=== PATIENT | female | born 1950 | race Caucasian/White ===

== ENCOUNTER 2017-01-22 13:05 | Emergency (ER) | payer OTHER ==
--- NOTE | 2017-01-22 13:21 | ED GENERAL ADULT ---
History of Present Illness General Chief Complaint: General Adult Stated Complaint: PER DAUGHTER HIGH BP, TIRADO Source: patient, family Exam Limitations: language barrier Vital Signs & Intake/Output Vital Signs & Intake/Output Vital Signs Date Time Temp Pulse Resp B/P Pulse O2 O2 Flow FiO2 Ox Delivery Rate 01/22 1523 54 18 166/84 97 Room Air 01/22 1419 97.2 70 17 188/86 01/22 1350 192/90 01/22 1350 188/86 01/22 1320 97 Room Air 01/22 1310 97.2 70 20 215/115 99 Room Air Allergies Coded Allergies: No Known Allergies (01/22/17) Reconcile Medications Bisoprolol Fumarate 5 MG TABLET 1 TAB PO DAILY HTN (Reported) Triage Note: PT PRESENTS TO ER C/O OF HEADACHE SINCE THIS AM. PT ALSO STATES SHE FEELS DIZZY. PT STATES BP WAS HIGH AT HOME TODAY. BP AT TRIAGE 215/115. PT DENIES CHEST PAIN, SOB, AND VISUAL CHANGES. Triage Nurses Notes Reviewed? yes Onset: Abrupt Duration: day(s): (1) Timing: single episode today Injury Environment: home Severity: mild, moderate No Modifying Factors: none Associated Symptoms: HEADACHE, DIZZINESS, LIGHTHEADED HPI: 66 year old primary Serbian speaking female with history of DM and HTN who presents with her daughter for increased blood pressure. Today she took an extra dose of a probable abelino inhibitor secondary to elevated pressure. Patient is also on a daily beta jamari. She told her daughter she had mild headache and felt unsteady on her feet. No blurred vision, confusion, AMS, chest pain, shortness of breath, back pain/abdominal pain. No weakness in the extremities. Patient is compliant with medications. Denies any other symptoms. Patient has a PCP in [place]. Past History Travel History Traveled to [place] past 21 day No Medical History Any Pertinent Medical History? see below for history Cardiovascular: hypertension Endocrine: diabetes Surgical History Surgical History: non-contributory Psychosocial History What is your primary language Serbian Tobacco Use: Current Daily Use Daily Tobacco Use Amount/Type: => 5 Cigarettes daily ETOH Use: social Illicit Drug Use: denies illicit drug use Family History Hx Contributory? No Review of Systems Review of Systems Constitutional: Denies: chills, fever. EENTM: Reports: no symptoms. Respiratory: Denies: cough, short of breath, sputum production. Cardiovascular: Denies: chest pain, palpitations. GI: Denies: abdominal pain, nausea, vomiting. Genitourinary: Reports: no symptoms. Musculoskeletal: Reports: no symptoms. Skin: Reports: no symptoms. Neurological/Psychological: Reports: see HPI (DIZZINESS), headache. Denies: numbness, tingling, tremors, weakness. Hematologic/Endocrine: Denies: bruising, bleeding, polyuria, polydipsia. Immunologic/Allergic: Denies: splenectomy. All Other Systems: Reviewed and Negative Physical Exam Physical Exam General Appearance: well developed/nourished, alert, awake Head: atraumatic, normal appearance Eyes: Bilateral: PERRL, EOMI. 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 Yes ASA ordered for poss ACS? No-ACS ruled out CVA/TIA Diagnosis: No Severe Sepsis Present: No Septic Shock Present: No Progress Differential Diagnoses I considered the following diagnoses in my evaluation of the patient: [ UNCONTROLLED HTN, HYPERTENSIVE URGENCY, HYPERTENSIVE CRISIS] Plan of Care: Orders Procedure Date/time Status URINALYSIS 01/22 1315 Complete TROPONIN LEVEL 01/22 1315 Complete COMPREHENSIVE METABOLIC PANEL 01/22 1315 Complete CBC WITHOUT DIFFERENTIAL 01/22 1315 Complete EKG 01/22 1312 Active Current Medications Sig/Yehuda Start time Last Medication Dose Stop Time Status Admin Metoprolol Tartrate 50 MG ONCE ONE 01/22 1400 CAN (Lopressor) 01/22 1401 Laboratory Tests 01/22/17 1354: Urine Color YEL, Urine Clarity CLEAR, Urine pH 7.0, Ur Specific Blanchard 1.015, Urine Protein NEG, Urine Ketones NEG, Urine Nitrite NEG, Urine Bilirubin NEG, Urine Urobilinogen 0.2, Ur Leukocyte Esterase NEG, Ur Microscopic EXAM NOT REQUIRED, Urine Hemoglobin NEG, Urine Glucose NEG 01/22/17 1350: Anion Gap 11, Estimated GFR > 60, BUN/Creatinine Ratio 23.3, Glucose 172 H, Calcium 9.7, Total Bilirubin 0.5, AST 31, ALT 49, Alkaline Phosphatase 140 H, Troponin I < 0.01, Total Protein 7.5, Albumin 4.6, Globulin 2.9, Albumin/ Globulin Ratio 1.6, CBC w Diff NO MAN DIFF REQ, RBC 4.83, MCV 92.4, MCH 31.5 H, RDW 12.3, MPV 8.7, Gran % 47.0, Lymphocytes % 43.6, Monocytes % 7.7, Eosinophils % 1.4, Basophils % 0.3, Absolute Granulocytes 3.6, Absolute Lymphocytes 3.3, Absolute Monocytes 0.6, Absolute Eosinophils 0.1, Absolute Basophils 0, PUBS MCHC 34.1 EKG, LABS, METOPROLOL ORDERED. NEURO EXAMINATION INTACT. REPEAT BP 166/84. PATIENT REPORTS NORMAL SYSTOLIC RUNS 140/150. SHE REPORTS RESOLUTION OF SYMPTOMS AT THIS TIME. HOME MEDICATIONS INCREASED AND THE PATIENT WILL RECORD HER BLOOD PRESSURES AND FOLLOW UP WITH HER PCP IN THE OFFICE. (LILIYA NINA,MARIA C) Initial ED EKG: NSR Departure Departure Time of Disposition: 1533 Disposition: HOME OR SELF CARE Condition: Stable Clinical Impression Primary Impression: Hypertension Additional Instructions: TAKE 2 TABLETS OF YOUR BISOPROLOL AND MONITOR YOUR BLOOD PRESSURE TWICE A DAY. KEEP TRACK OF THIS FOR YOUR DOCTOR. RETURN TO THE ER FOR ANY PERSISTENT HIGH BLOOD PRESSURES, HEADACHE, CHEST PAIN, SHORTNESS OF BREATH. Departure Forms: Customer Survey General Discharge Information Critical Care Note Critical Care Note Critical Care Time: non-applicable ED Attending Observation Initial Observation Note: I have seen and personally examined PILAR MONTESINOS on 01/22/17 at 1335. I agree with the current emergency department documentation. The disposition (admission or discharge) is uncertain at this time, she needs a period of observation for the following reason(s): The ED Nurse caring for this patient has been personally informed as to what the patient is being observed for.
[2017-01-22] MEDS ORDERED: BISOPROLOL FUMAR5 M1 PO (13:29)
[2017-01-22 14:03] LABS: ABSOLUTE BASOPHIL COUNT 0 /CUMM (0.0-0.2); ABSOLUTE EOSINOPHIL COUNT 0.1 /CUMM (0.0-0.7); ABSOLUTE GRANULOCYTE CT 3.6 /CUMM (1.4-6.5); ABSOLUTE LYMPH COUNT 3.3 /CUMM (1.2-3.4); ABSOLUTE MONOCYTE COUNT 0.6 /CUMM (0.10-0.60); BASOPHIL % 0.3 % (0.0-2.0); EOSINOPHIL % 1.4 % (0-5); HEMATOCRIT 44.6 % (37-47); MEAN CORPUSCULAR HGB 31.5 PG (27.0-31.0); MEAN CORPUSCULAR HGB CONC 34.1 G/DL (33.0-37.0); MEAN CORPUSCULAR VOLUME 92.4 FL (81.0-99.0); MEAN PLATELET VOLUME 8.7 FL (7.4-10.4); PLATELET COUNT 225 /CUMM (130-400); RBC DISTRIBUTION WIDTH 12.3 % (11.5-14.5); RED BLOOD CELL CT 4.83 /CUMM (4.20-5.40); WHITE BLOOD CELL COUNT 7.6 /CUMM (4.8-10.8)
[2017-01-22 15:23] VITALS: BP 166/84
[2017-01-23] MEDS ORDERED: ALTACE5 M2 PO (10:32)
[2017-01-23] MEDS ORDERED: BISOPROLOL FUMA10 M1 PO (12:25)
[2017-01-23] MEDS ORDERED: LISINOPRIL20 M1 PO (23:08)
[2017-01-23] MEDS ORDERED: [UNRECOGNIZED DRUG - OTHER] PO (23:22)
== END 2017-01-22 15:53 ==
LOC: ERH 13:05
PROVIDERS: Emergency Medicine
DX: I10 Essential (primary) hypertension (principal); Z72.0 Tobacco use; R51 Headache; R42 Dizziness and giddiness
CPT/HCPCS: 81003; 93005; 93010

== ENCOUNTER 2017-01-23 09:28 | Emergency (ER) | payer OTHER ==
[~2017-01-23] VITALS: Ht 175.3 cm; Wt 79.4 kg
[~2017-01-23 09:28] MED LIST: BISOPROLOL FUMAR5 M1 PO
[2017-01-23] MEDS ORDERED: ALTACE5 M2 PO (10:32)
--- NOTE | 2017-01-23 10:44 | ED CARDIAC/CP/PALPITATIONS ---
History of Present Illness General Chief Complaint: General Adult Stated Complaint: HIGH B/P Source: patient, family, old records Exam Limitations: no limitations Vital Signs & Intake/Output Vital Signs & Intake/Output Vital Signs Date Time Temp Pulse Resp B/P Pulse O2 O2 Flow FiO2 Ox Delivery Rate 01/23 1219 97.7 62 20 150/90 98 Room Air 01/23 1136 49 18 180/88 97 01/23 1015 150/98 01/23 0935 97.5 58 16 200/97 100 Room Air Allergies Coded Allergies: No Known Allergies (01/22/17) Reconcile Medications Bisoprolol Fumarate 5 MG TABLET 1 TAB PO DAILY HTN (Reported) Bisoprolol Fumarate 10 MG TABLET 1 TAB PO DAILY htn Ramipril (Altace) 5 MG CAPSULE 1 CAP PO DAILY HEART (Reported) Triage Note: PT HERE FOR HIGH BP WAS SEEN HERE YESTERDAY WAS GIVEN ADDITIONAL MEDS TO TAKE AND WAS TOLD IF BP CONTINURES TO BE HIGH TO RETURN TO ED. Triage Nurses Notes Reviewed? yes Onset: Just prior to arrival Duration: hour(s):, constant, continues in ED Timing: recent history Quality/Severity: mild, aching Location: substernal Radiation: no radiation Activities at Onset: none Prior Chest Pain/Card Workup: no prior cardiac workup Nitro Today/Relief: 0.4 mg x 1, provided by ED Aspirin Today: 81 mg x 4, provided by ED Associated Symptoms: fatigue, headache LMP (ages 10-50): post menopausal : No Patient currently breastfeeds: No HPI: Several days prior to admission patient is complained of chest aching fatigue headache found blood pressure to be elevated. She was seen yesterday with negative lab exams normal EKG with increase in beta jamari. Prior to admission after taking her medications for blood pressure was still elevated with chest aching fatigue headache. She denies fever chills nausea vomiting diarrhea abdominal pain shortness of breath dysuria rash bleeding. Past History Travel History Traveled to [place] past 21 day No Medical History Any Pertinent Medical History? see below for history Cardiovascular: hypertension Endocrine: diabetes Surgical History Surgical History: non-contributory Psychosocial History What is your primary language Serbian Tobacco Use: Current Daily Use Daily Tobacco Use Amount/Type: => 5 Cigarettes daily ETOH Use: occasional use Illicit Drug Use: denies illicit drug use Family History Hx Contributory? No Review of Systems Review of Systems Constitutional: Reports: see HPI, malaise. EENTM: Reports: no symptoms. Respiratory: Reports: no symptoms. Cardiovascular: Reports: see HPI, chest pain. GI: Reports: no symptoms. Genitourinary: Reports: no symptoms. Musculoskeletal: Reports: no symptoms. Skin: Reports: no symptoms. Neurological/Psychological: Reports: see HPI, headache. Hematologic/Endocrine: Reports: no symptoms. Immunologic/Allergic: Reports: no symptoms. All Other Systems: Reviewed and Negative Physical Exam Physical Exam General Appearance: well developed/nourished, alert, awake, anxious, mild distress Head: atraumatic, normal appearance Eyes: Bilateral: normal appearance, PERRL, EOMI. Ears, Nose, Throat: normal pharynx, normal ENT inspection Neck: normal inspection, supple, full range of motion, no midline tenderness Respiratory: normal breath sounds, chest non-tender, no respiratory distress, quiet respiration, lungs clear Cardiovascular: regular rate/rhythm, normal peripheral pulses, norml femoral pulses equa Peripheral Pulses: 4+ carotid (R), 4+ carotid (L) Gastrointestinal: normal bowel sounds, soft, non-tender, no organomegaly Back: normal inspection, normal range of motion Extremities: normal inspection, normal capillary refill, normal range of motion, no edema Neurologic/Psych: no motor/sensory deficits, awake, alert, oriented x 3, normal gait, normal mood/affect, 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 Skin: intact, normal color, warm/dry Lymphatic: no anterior cervical sumeet Core Measures ACS in differential dx? Yes ASA ordered for poss ACS? Yes-ordered Severe Sepsis Present: No Septic Shock Present: No Progress Differential Diagnosis: AMI, hyperkalemia, hyperthyroid, pneumonia Plan of Care: Orders Procedure Date/time Status TROPONIN LEVEL 01/23 1026 Complete COMPREHENSIVE METABOLIC PANEL 01/23 1026 Complete CBC WITHOUT DIFFERENTIAL 01/23 1026 Complete EKG 01/23 1026 Active Laboratory Tests 01/23/17 1037: Anion Gap 8, Estimated GFR > 60, BUN/Creatinine Ratio 21.7, Glucose 177 H, Calcium 9.9, Total Bilirubin 0.7, AST 28, ALT 46, Alkaline Phosphatase 134 H, Troponin I < 0.01, Total Protein 7.3, Albumin 4.4, Globulin 2.9, Albumin/ Globulin Ratio 1.5, CBC w Diff NO MAN DIFF REQ, RBC 4.55, MCV 92.9, MCH 31.2 H, RDW 12.7, MPV 8.4, Gran % 71.9, Lymphocytes % 22.2, Monocytes % 4.8, Eosinophils % 0.6, Basophils % 0.5, Absolute Granulocytes 8.1 H, Absolute Lymphocytes 2.5, Absolute Monocytes 0.5, Absolute Eosinophils 0.1, Absolute Basophils 0.1, PUBS MCHC 33.6 (GEORGE NINA,MALENA) Diagnostic Imaging: Viewed by Me: CT Scan. Discussed w/RAD: CT Scan. Radiology Impression: no acute abnormality Initial ED EKG: normal axis, normal intervals, normal p-waves, normal QRS complex, normal sinus rhythm, no ST T wave changes Prior EKG: unchanged Rhythm Strip: normal sinus rhythm Departure Departure Time of Disposition: 1222 Disposition: HOME OR SELF CARE Condition: Stable Clinical Impression Primary Impression: Hypertension Qualifiers: Hypertension type: essential hypertension Qualified Code: I10 - Essential (primary) hypertension Referrals: PATIENT HAS NO PRIMARY CARE DR (PCP/Family) Additional Instructions: Increase your bisoprolol 10 mg daily and Ramipril 10 mg daily Departure Forms: Customer Survey General Discharge Information Prescriptions: Current Visit Scripts Bisoprolol Fumarate 1 TAB PO DAILY #30 TAB Critical Care Note Critical Care Note Critical Care Time: non-applicable
[2017-01-23 10:52] LABS: ABSOLUTE BASOPHIL COUNT 0.1 /CUMM (0.0-0.2); ABSOLUTE EOSINOPHIL COUNT 0.1 /CUMM (0.0-0.7); ABSOLUTE GRANULOCYTE CT 8.1 /CUMM (1.4-6.5); ABSOLUTE LYMPH COUNT 2.5 /CUMM (1.2-3.4); ABSOLUTE MONOCYTE COUNT 0.5 /CUMM (0.10-0.60); BASOPHIL % 0.5 % (0.0-2.0); EOSINOPHIL % 0.6 % (0-5); GRANULOCYTE % 71.9 % (42.2-75.2); HEMATOCRIT 42.3 % (37-47); MEAN CORPUSCULAR HGB 31.2 PG (27.0-31.0); MEAN CORPUSCULAR HGB CONC 33.6 G/DL (33.0-37.0); MEAN CORPUSCULAR VOLUME 92.9 FL (81.0-99.0); MEAN PLATELET VOLUME 8.4 FL (7.4-10.4); PLATELET COUNT 217 /CUMM (130-400); RBC DISTRIBUTION WIDTH 12.7 % (11.5-14.5); RED BLOOD CELL CT 4.55 /CUMM (4.20-5.40); WHITE BLOOD CELL COUNT 11.3 /CUMM (4.8-10.8)
--- NOTE | 2017-01-23 10:58 | CT SCAN REPORT ---
EXAMINATION: CT HEAD WITHOUT CONTRAST CLINICAL INFORMATION: Headache. Hypertension. Suspected intracranial hemorrhage. COMPARISON: None TECHNIQUE: Contiguous axial imaging was performed from the skull base to vertex without intravenous administration of contrast. DLP: 600.71 mGy-cm FINDINGS: There is no evidence of acute intracranial hemorrhage or territorial infarction. No abnormal mass effect or midline shift is seen. Wallace to white matter differentiation is well preserved. No extra-axial fluid collections are identified. The ventricles are normal in size. There is no abnormal attenuation within the brain parenchyma. The osseous structures and soft tissues are normal. The mastoid air cells and visualized portions of the paranasal sinuses are well aerated. IMPRESSION: No acute intracranial pathology.
[2017-01-23 12:19] VITALS: BP 150/90
[2017-01-23] MEDS ORDERED: BISOPROLOL FUMA10 M1 PO (12:25)
[2017-01-23] MEDS ORDERED: LISINOPRIL20 M1 PO (23:08)
[2017-01-23] MEDS ORDERED: [UNRECOGNIZED DRUG - OTHER] PO (23:22)
== END 2017-01-23 12:33 ==
LOC: ERH 09:28
PROVIDERS: Emergency Medicine
DX: I10 Essential (primary) hypertension (principal); Z72.0 Tobacco use; R51 Headache; R07.9 Chest pain, unspecified
CPT/HCPCS: 93005; 93010; J3490

== ENCOUNTER 2017-01-23 19:57 | Inpatient (IN) | payer OTHER ==
[~2017-01-23] VITALS: Ht 175.3 cm; Wt 68.0 kg
[~2017-01-23 19:57] MED LIST changes: +ALTACE5 M2 PO; +BISOPROLOL FUMA10 M1 PO
--- NOTE | 2017-01-23 20:03 | NUR ---
PER DAUGHTER, SEEN THIS AM FOR HTN GIVEN MEDICATIONS FOLLOWED UP WITH PCP, AND GIVEN MERDS BUT PT CONT TO BE HYPERTENSIVE NOW WITH TIRADO. GIVEN LISINOPRIL 20MG, BISOGARD 5MG,PRIMIL 5 MG
--- NOTE | 2017-01-23 20:09 | NUR ---
EKG DEFERRED AT PT HAD 2 EKGS TODAY ON 1ST VISIT.
--- NOTE | 2017-01-23 20:20 | NUR ---
MANUAL BP 190/96.
--- NOTE | 2017-01-23 20:25 | ED CARDIAC/CP/PALPITATIONS ---
History of Present Illness General Chief Complaint: General Adult Stated Complaint: HIGH BP D/C THIS AM FOR SAME CP/TIRADO Source: patient, family, old records Exam Limitations: language barrier Vital Signs & Intake/Output Vital Signs & Intake/Output Vital Signs Date Time Temp Pulse Resp B/P Pulse O2 O2 Flow FiO2 Ox Delivery Rate 01/23 2213 64 166/88 96 Room Air 01/23 2130 65 180/90 01/23 2126 65 180/90 95 Room Air 01/23 2117 65 18 191/92 95 Room Air 01/24 2116 65 18 191/92 01/23 2038 180/92 01/23 2019 190/96 01/24 2004 97.7 66 22 217/106 96 Allergies Coded Allergies: No Known Allergies (01/22/17) Reconcile Medications Amlodipine Besylate (Norvasc) 10 MG TABLET 1 TAB PO DAILY HTN Aspirin (Aspirin*) 81 MG TAB.CHEW 81 MG PO DAILY CAD Atorvastatin Calcium 40 MG TABLET 40 MG PO 1700 HIGH CHOLESTEROL Clonidine Tts-1 (Catapres-Tts 1) 0.1 MG/24 HOUR PATCH.TDWK 1 PAT TOP Q168 blood pressure [GLICLADA] 30 MG TAB 1 TAB PO BID DIABETES (Reported) Lisinopril 40 MG TABLET 1 TAB PO DAILY HTN Nicotine (Nicotine Patch) 7 MG/24 HOUR PATCH.TD24 7 MG TOP Q24 Smoking Triage Note: PER DAUGHTER, SEEN THIS AM FOR HTN GIVEN MEDICATIONS FOLLOWED UP WITH PCP, AND GIVEN MERDS BUT PT CONT TO BE HYPERTENSIVE NOW WITH TIRADO. GIVEN LISINOPRIL 20MG, BISOGARD 5MG,PRIMIL 5 MG Triage Nurses Notes Reviewed? yes Onset: Abrupt Duration: day(s): (2) Timing: multiple episodes today Quality/Severity: moderate, pressure Location: central Radiation: no radiation Activities at Onset: none Prior Chest Pain/Card Workup: no prior chest pain Aspirin Today: provided at home HPI: 56-year-old primarily Citizen Of [place] speaking female who has a history of high blood pressure presents to the ER for the third time in the last 2 days for chief complaint of elevated blood pressure headache and chest pain. She was seen by myself yesterday. We gave her a dose of oral medications in the ER which brought her pressure down. She felt better and went home. I instructed her to increase the dose of her walker from [employer]. She came earlier today for worsening symptoms and headache. She was seen here had blood work done and a CAT scan done. She was given he med and sent home. This afternoon she followed up with her daughter's physician Fatuma Handley MD who prescribed her 20 mg of lisinopril. This evening her symptoms got worse. Chest pain rated 6 out of 10. She feels heaviness in her chest. Mild diffuse headache, no worse than today. Past History Travel History Traveled to [place] past 21 day No Medical History Any Pertinent Medical History? see below for history Neurological: NONE EENT: NONE Cardiovascular: hypertension Respiratory: NONE Gastrointestinal: NONE Hepatic: NONE Renal: NONE Musculoskeletal: NONE Psychiatric: NONE Endocrine: diabetes Surgical History Surgical History: non-contributory Psychosocial History What is your primary language Citizen Of [place] Tobacco Use: Current Daily Use Daily Tobacco Use Amount/Type: => 5 Cigarettes daily Family History Hx Contributory? No Review of Systems Review of Systems Constitutional: Denies: chills, fever. EENTM: Reports: no symptoms. Respiratory: Denies: cough, short of breath. Cardiovascular: Reports: chest pain. GI: Denies: abdominal pain. Genitourinary: Reports: no symptoms. Musculoskeletal: Reports: no symptoms. Skin: Reports: no symptoms. Neurological/Psychological: Reports: anxiety, headache. Hematologic/Endocrine: Denies: bruising. Immunologic/Allergic: Denies: splenectomy. All Other Systems: Reviewed and Negative Physical Exam Physical Exam General Appearance: well developed/nourished, alert, awake, anxious, mild distress Head: atraumatic, normal appearance Eyes: Bilateral: PERRL, EOMI. Ears, Nose, Throat: normal pharynx, hearing grossly normal Neck: normal inspection, supple, full range of motion Respiratory: normal breath sounds, chest non-tender, no respiratory distress Cardiovascular: regular rate/rhythm Peripheral Pulses: 2+ radial (R), 2+ radial (L) Gastrointestinal: normal bowel sounds, soft, non-tender Extremities: normal inspection, normal range of motion, no edema Neurologic/Psych: no motor/sensory deficits, awake, alert, oriented x 3, normal gait, normal mood/affect Skin: intact, normal color, warm/dry Core Measures ACS in differential dx? 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 Septic Shock Present: No Progress Differential Diagnosis: HYPERTENSIVE URGENCY, HYPERTENSIVE CRISIS, ACS Plan of Care: Orders Procedure Date/time Status Heart Healthy Diet 01/24 B Active Admit to inpatient 01/23 2155 Active Vital Signs 01/23 2155 Active Code Status 01/23 2155 Active XRY-CHEST XRAY, PA AND LATERAL 01/23 2151 Active TROPONIN LEVEL 01/24 2024 Complete COMPREHENSIVE METABOLIC PANEL 01/24 2024 Complete CBC WITHOUT DIFFERENTIAL 01/24 2024 Complete EKG 01/23 1959 Active Laboratory Tests 01/23/172117: Anion Gap 11, Estimated GFR > 60, BUN/Creatinine Ratio 20.0, Glucose 161 H, Calcium 9.9, Total Bilirubin 0.4, AST 29, ALT 46, Alkaline Phosphatase 142 H, Troponin I < 0.01, Total Protein 7.2, Albumin 4.3, Globulin 2.9, Albumin/ Globulin Ratio 1.5, CBC w Diff NO MAN DIFF REQ, RBC 4.44, MCV 91.5, MCH 31.1 H, RDW 12.3, MPV 8.3, Gran % 58.7, Lymphocytes % 31.7, Monocytes % 8.0, Eosinophils % 1.1, Basophils % 0.5, Absolute Granulocytes 5.5, Absolute Lymphocytes 2.9, Absolute Monocytes 0.7 H, Absolute Eosinophils 0.1, Absolute Basophils 0, PUBS MCHC 34.0 IV ENALAPRIL GIVEN WITH IMPROVEMENT IN BLOOD PRESSURE. PATIENT REPORTS CIMINISHED CHEST PAIN AFTER SL NITRO. D/W DR KWON, WILL ADMIT TO TELEMETRY. (LILIYA NINA,MARIA C) Diagnostic Imaging: Viewed by Me: Radiology Read. Discussed w/RAD: Radiology Read. Initial ED EKG: NSR Comments: PATIENT: PILAR MONTESINOS PRESENT AGE: 66 PATIENT ACCOUNT NO: [id number] : 49 LOCATION: [facility] ORDERING PHYSICIAN: MARIA C LOVELL MD SERVICE DATE: 01/23/17 EXAM TYPE: RAD - XRY-CHEST XRAY, PA AND LATERAL EXAMINATION: XR CHEST CLINICAL INFORMATION: Pain. COMPARISON: None TECHNIQUE: 2 views of the chest were obtained. FINDINGS: Unfolding of thoracic vasculature. No significant abnormality is noted involving the heart, lungs, mediastinum, bony thorax or soft tissues. IMPRESSION: No active chest disease. DICTATED BY: VICTORINA MCKINNEY MD DATE/TIME DICTATED:01/23/172222 WOOD MACHINE CARVER:STACI DATE/TIME TRANSCRIBED:01/23/172222 CONFIDENTIAL, DO NOT COPY WITHOUT APPROPRIATE AUTHORIZATION. <Electronically signed in Other Vendor System> SIGNED BY: VICTORINA MCKINNEY MD 01/23/172226 Departure Departure Time of Disposition: 2203 Disposition: STILL A PATIENT Condition: Stable Clinical Impression Primary Impression: Hypertensive urgency Secondary Impressions: Chest pain Referrals: NUVIA NINA,FATUMA Gamino (PCP/Family) Departure Forms: Customer Survey General Discharge Information Prescriptions: Current Visit Scripts Aspirin (Aspirin*) 81 MG PO DAILY #90 Lisinopril 1 TAB PO DAILY #30 TAB Nicotine (Nicotine Patch) 7 MG TOP Q24 #30 PATCH Admission Note Spoke With: DOYLE NINA PhD,JENNIFER Bartholomew Documentation of Exam: Documentation of any treatments & extenuating circumstances including Concerns Regarding Discharge (functional status, medication knowledge or non-compliance, living conditions, etc.) that warrant an admission rather than observation: [ TELE MONITOR, ANTIHYPERTENSIVES, SERIAL EKG/TROPONIN, ASPIRIN/NITRATES, ECHOCARDIOGRAM] Critical Care Note Critical Care Note Critical Care Time: 30-74 min
--- NOTE | 2017-01-23 20:39 | NUR ---
BP 180/92 MANUALLY IN LEFT ARM.
--- NOTE | 2017-01-23 21:16 | NUR ---
PT'S BP CURRENTLY 191/92. PT MEDICATED WITH VASOTEC 1.25MG IV. WILL CONTINUE TO MONITOR.
--- NOTE | 2017-01-23 21:31 | NUR ---
PT'S BP 180/90 AFTER FIRST DOSE OF VASOTEC. DR LOVELL NOTIFIED.
--- NOTE | 2017-01-23 21:31 | NUR ---
SECOND DOSE OF VASOTEC IV GIVEN PER EMAR. DR LOVELL AT BEDSIDE. BP 176/102. PT STATES CHEST PAIN PF 01/11.
[2017-01-23 21:32] LABS: ABSOLUTE BASOPHIL COUNT 0 /CUMM (0.0-0.2); ABSOLUTE EOSINOPHIL COUNT 0.1 /CUMM (0.0-0.7); ABSOLUTE GRANULOCYTE CT 5.5 /CUMM (1.4-6.5); ABSOLUTE LYMPH COUNT 2.9 /CUMM (1.2-3.4); ABSOLUTE MONOCYTE COUNT 0.7 /CUMM (0.10-0.60); BASOPHIL % 0.5 % (0.0-2.0); EOSINOPHIL % 1.1 % (0-5); GRANULOCYTE % 58.7 % (42.2-75.2); HEMATOCRIT 40.6 % (37-47); MEAN CORPUSCULAR HGB 31.1 PG (27.0-31.0); MEAN CORPUSCULAR VOLUME 91.5 FL (81.0-99.0); MEAN PLATELET VOLUME 8.3 FL (7.4-10.4); PLATELET COUNT 216 /CUMM (130-400); RBC DISTRIBUTION WIDTH 12.3 % (11.5-14.5); RED BLOOD CELL CT 4.44 /CUMM (4.20-5.40); WHITE BLOOD CELL COUNT 9.3 /CUMM (4.8-10.8)
--- NOTE | 2017-01-23 21:44 | NUR ---
0.5GM NITRO-BID APPLIED TO LEFT CHEST. WILL CONTINUE TO MONITOR.
--- NOTE | 2017-01-23 21:44 | NUR ---
MANUAL BP 180/98 HEART RATE 63.
--- NOTE | 2017-01-23 21:50 | NUR ---
DR LOVELL NOTIFIED OF CURRENT BP. PT AWARE THAT WE ARE AWAITING LAB RESULTS.
--- NOTE | 2017-01-23 21:55 | NUR ---
PT TAKEN FOR XRAY VIA STRETCHER AT THIS TIME.
--- NOTE | 2017-01-23 22:08 | NUR ---
PT RETURNED FROM XRAY AT THIS TIME.
--- NOTE | 2017-01-23 22:14 | NUR ---
PT'S MANUAL BP 160/88. HEART RATE 64. DR LOVELL NOTIFIED.
--- NOTE | 2017-01-23 22:22 | History & Physical ---
LINDSAY RODRIGUEZ MD 01/23/171: General Information and HPI MD Statement: I have seen and personally examined PILAR ST and documented this H&P. The patient is a 66 year old F who presented with a patient stated chief complaint of high blood pressure. Source of Information: patient, old records Exam Limitations: no limitations History of Present Illness: Ms. St is a pleasant 66 year old Nauruan speaking female with PMH HTN and type 2 DM who presents to the [place] ED with chief complaint of high blood pressure, chest discomfort and dizziness. Patient is mostly Nauruan speaking and therefore most of the history is obtained from the patient's daughter. Patient was seen in the emergency room yesterday due to headache, dizziness and high blood pressure. At that time she was discharged on a higher dose of bisoprolol ( 2 tablets). She had taken her medications as directed but this morning noted her blood pressure remained elevated to 200 systolic and was associated with headache, chest discomfort and dizziness, prompting her to return to the emergency room. She had a head CT done at that time which was negative along with blood work that was non-revealing. Again her bisoprololn was increased and she was instructed to take 10 mg ramipril daily. She subsequently visisted her daughter's PCP, Dr. Pedersen, who prescribed her lisinopril that temporarily decreased her blood pressure but 3 hours later was noted to be high to 190-200 systolic. Due to recurrent chest discomfort, headache and dizziness with this elevated blood pressure, she presented to the ED for a third time. On questioning, patient reports that she continues to have chest pressure, though it was decreased from a 4/10 to a 1/10 with nitroglycerin. The chest pressure is substernal, non-radiating and worsens when her blood pressure is elevated. Patient reports her dizziness is constant, not worsened by movement, and is not associated with nausea or vision changes. Currently, patient denies fever, chills, shortness of breath, palpitations, abdominal pain, nausea, vomiting, vision changes or weakness. Social history is significant for about 40 year history of tobacco abuse, currently using 5 cigarettes a day. She denies illicit drug use and occasionally drinks alcohol. She lives in [place] but travels to [place] frequently. She denies herbal supplement use. Past surgical history is significant for appendectomy. Family history is significant for a father with heart disease and a mother/sister with idiopathic HTN. Allergies/Medications Allergies: Coded Allergies: No Known Allergies (01/22/17) Home Med list Bisoprolol Fumarate 5 MG TABLET 1 TAB PO DAILY HTN (Reported) [GLICLADA] 30 MG TAB 1 TAB PO BID DIABETES (Reported) Lisinopril 20 MG TABLET 1 TAB PO DAILY HTN (Reported) Ramipril (Altace) 5 MG CAPSULE 1 CAP PO DAILY HEART (Reported) Compliance With Home Meds: GOOD Past History Travel History Traveled to [place] past 21 day No Medical History Neurological: NONE EENT: NONE Cardiovascular: hypertension Respiratory: NONE Gastrointestinal: NONE Hepatic: NONE Renal: NONE Musculoskeletal: NONE Psychiatric: NONE Endocrine: diabetes Surgical History Surgical History: non-contributory Past Family/Social History Psychosocial History Where do you live? Home Services at Home: None Primary Language: Nauruan Smoking Status: Current Everyday Smoker ETOH Use: occasional use Illicit Drug Use: denies illicit drug use Living Will? no Functional Ability ADLs Independent: dressing, eating, toileting, bathing. Ambulation: independent IADLs Independent: shopping, housework, finances, food prep, telephone, transportation , medication admin. Review of Systems Review of Systems Constitutional: Denies: chills, diaphoresis, fever, malaise, weakness. EENTM: Denies: blurred vision, visual changes, hearing changes, nasal congestion. Cardiovascular: Reports: chest pain. Denies: orthopena, palpitations, peripheral edema, syncope. Respiratory: Denies: cough, short of breath, sputum production, wheezing. GI: Denies: abdominal pain, nausea, vomiting. Genitourinary: Denies: dysuria, hematuria. Musculoskeletal: Denies: back pain, joint pain. Skin: Denies: lesions, rash. Neurological/Psychological: Reports: headache. Denies: confusion, numbness, paresthesia, tremors. Hematologic/Endocrine: Denies: bruising, bleeding. Immunologic/Allergic: Denies: splenectomy. All Other Systems: Reviewed and Negative Exam & Diagnostic Data Last 24 Hrs of Vital Signs/I&O Vital Signs Date Time Temp Pulse Resp B/P Pulse O2 O2 Flow FiO2 Ox Delivery Rate 01/24 0000 96 01/23 2355 97.9 52 18 142/70 96 Room Air 01/23 2305 97.1 68 18 177/97 94 Room Air 01/230 58 170/94 01/234 64 176/94 01/233 64 166/88 96 Room Air 01/230 65 180/90 01/23 2126 65 180/90 95 Room Air 01/23 2117 65 18 191/92 95 Room Air 01/24 2116 65 18 191/92 01/23 2038 180/92 01/23 2019 190/96 01/23 2004 97.7 66 22 217/106 96 Intake & Output 01/24 0800 01/24 0000 01/23 1600 Intake Total 0 Output Total Balance 0 Intake, Oral 0 Patient 150 lb Weight Physical Exam General Appearance Alert, Oriented X3, Cooperative, No Acute Distress Skin No Rashes, No Breakdown, No Significant Lesion HEENT Atraumatic, PERRLA, EOMI, Mucous Membr. moist/pink Neck Supple, No JVD, +2 Carotid Pulse wo Bruit Lymphatic Cervical nl Cardiovascular Regular Rate, Normal S1, Normal S2, No Murmurs Lungs Clear to Auscultation, Normal Air Movement Abdomen Normal Bowel Sounds, Soft, No Tenderness, No Masses Neurological Normal Speech, Strength at 5/5 X4 Ext, Normal Tone Extremities No Clubbing, No Cyanosis, No Edema, No Tenderness/Swelling Vascular Pulses Symmetrical Last 24 Hrs of Labs/Austen: Laboratory Tests 01/23/172117: Anion Gap 11, Estimated GFR > 60, BUN/Creatinine Ratio 20.0, Glucose 161 H, Calcium 9.9, Total Bilirubin 0.4, AST 29, ALT 46, Alkaline Phosphatase 142 H, Troponin I < 0.01, Total Protein 7.2, Albumin 4.3, Globulin 2.9, Albumin/ Globulin Ratio 1.5, CBC w Diff NO MAN DIFF REQ, RBC 4.44, MCV 91.5, MCH 31.1 H, RDW 12.3, MPV 8.3, Gran % 58.7, Lymphocytes % 31.7, Monocytes % 8.0, Eosinophils % 1.1, Basophils % 0.5, Absolute Granulocytes 5.5, Absolute Lymphocytes 2.9, Absolute Monocytes 0.7 H, Absolute Eosinophils 0.1, Absolute Basophils 0, PUBS MCHC 34.0 Diagnostic Data EKG Results NSR, HR 56 bpm, Small Q waves III, aVF. CXR Results IMPRESSION: No active chest disease. Assessment/Plan Assessment: Ms. St is a pleasant 66 year old Nauruan female with PMH HTN and type2 diabetes mellitus who presents with a two day history of hypertension, chest discomfort, dizziness and headache. She presented to the emergency room three times in total in the last 2 days for these issues, has had non-revealing blood work and CT scan of the head and has been given increased dosages of her bisoprolol/ramipril along with a new mediation, lisinopril. These interventions have failed to control her blood pressure and symptoms. In the ED: Vital signs showed T 97.7, HR 66, RR 22, BP 217/106 and O2 saturation of 95% on room air. Labs showed normal CBC/BEP, Glu 161, alk phos 142 and troponin <0.01. CXR was within normal limits. EKG showed NSR HR 56 bpm, small Q waves in III, aVF. Patient is admitted to the telemetry floor and the following is the management: 1. Hypertensive urgency * Patient received enalaprilat 1.25 mg IV x 2 while in the ED and BP dropped from 217/106 to 170/94 * Will currently hold off on any more antihypertensives tonight as we do not want to drop the BP more than 25% in the first 24 hours * Cardio consult with Dr. Garcia in AM, will follow recs * Lisinopril 40 mg PO BID and bisoprolol 5 mg PO BID starting tomorrow morning for improved BP control * Due to persistent and episodic HTN, will proceed with secondary HTN workup * US- complete abdomen to r/o renal artery stenosis * Renin aldosterone ratio, fractionated metanephrines, catecholamines, urine creatinine, aldosterone and plasma renin all ordered, follow up results 2. Chest pain * Likely secondary to hypertensive urgency * However, we will rule out ACS * Trend trop/ekg at 3 AM and 9 AM * Patient received nitroglycerin top 0.5 gm once, will hold off on nitro patch for now 3. Diabetes mellitus, type two * Hold oral hypoglycemics * Accuchecks TIDAC/HS * NSS TIDAC 4. Tobacco abuse * Patient counseled on tobacco cessation * Nicotine patch daily FULL CODE DVTP: Lovenox SC Heart healthy diet Mild pain pathway As Ranked By This Provider Problem List: 1. Hypertension 2. Hypertensive urgency 3. Chest pain Core Measures/Miscellaneous Acute Coronary Syndrome ACS Diagnosis: No Cerebrovascular Accident CVA/TIA Diagnosis: No Congestive Heart Failure CHF Diagnosis: No Venous Thromboembolism VTE Risk Factors: Acute medical illness, Age > [address] [facility] prophylaxis d/t: No contraindications No VTE Pharm Prophylaxis d/t: No contraindications VTE Diagnosis: No VTE Type: NONE VTE Confirmed by (Test): NONE Severe Sepsis Severe Sepsis Present: No Septic Shock Septic Shock Present: No Miscellaneous Documentation Attending Case Discussed With: Dr. Luis Garcia MD PhD Primary Care Physician: FATUMA PEDERSEN MD Patient sees these Specialists PCP in [place] and [place]. Level of Patient Care: Telemetry MINNIE SHEARER MD 01/24/17 2004: Resident Review Statement Resident Statement: examined this patient, discussed with financial analyst intern, agreed with financial analyst intern Other Findings: 66 Y/O F with a PMH of HTN, DM and gets all her medical care in [place], presents to the ED with complaints of elevated BP, dizziness and chest pressure. At home, she was maintained on Bispoprol 5 mg QD and Ramipril 2.5 QD She was seen in the ED yesterday, for the same complaint. At the time, she was asked to take her home Bisoprolol twice a day and check her blood pressure twice a day. Her BP was found to be elevated to the 220's even after doubling her dose of Bisoprolol. Patient came back to the ED this morning, with complaints of dizziness, chest pressure and elevated blood pressure. CT head done in the ED showed no acute pathology. She was discharged from the ED with her increased dose of Bisoprolol and Ramipril BID. She returned to the ED in the evening with elevated BP. She received 1.25 mg of Vasotec x 2 with decrease in her BP. She continued to have some chest pressure and headache. She denies any dizziness currently and states that her chest pressure is better. She denies any blurring of vision, change in urinary habits etc. Problem List: 1) Hypertensive Urgency (as the patient has elevated BP along with chest pressure) 2/2 inadequate control on current medications vs secondary HTN 2) Diabetes Mellitus Plan: * Admit patient to Telemetry * BP checks Q2 * Trops and EKG x 3 * Start Bisoprolol 5 mg BID and Lisinopril 40 mg BID * Evaluate for secondary HTN with renin:aldosterone, urine metanephrines and catecholamines and urine creatinine. * DVT PPx: Lovenox SubQ * Pain Pathway: Tylenol PRN * Code Status: Full Code
--- NOTE | 2017-01-23 22:27 | RADIOLOGY REPORT ---
EXAMINATION: XR CHEST CLINICAL INFORMATION: Pain. COMPARISON: None TECHNIQUE: 2 views of the chest were obtained. FINDINGS: Unfolding of thoracic vasculature. No significant abnormality is noted involving the heart, lungs, mediastinum, bony thorax or soft tissues. IMPRESSION: No active chest disease.
--- NOTE | 2017-01-23 22:45 | NUR ---
PT'S RM ASSIGNMENT 180 BED 2
--- NOTE | 2017-01-23 22:48 | NUR ---
HOUSESTAFF AT BEDSIDE FOR EVAL.
--- NOTE | 2017-01-23 22:51 | NUR ---
THIS RN CALLED TELEMETRY FOR REPORT. RECEIVING NURSE IS UNAVAILABLE TO TAKE REPORT AT THIS TIME.
--- NOTE | 2017-01-23 23:01 | NUR ---
REPORT GIVEN TO PATRICIA MC ON TELEMETRY.
[2017-01-23] MEDS ORDERED: LISINOPRIL20 M1 PO (23:08)
[2017-01-23] MEDS ORDERED: [UNRECOGNIZED DRUG - OTHER] PO (23:22)
[2017-01-23 23:55] VITALS: BP 142/70
[2017-01-24] VITALS (8 sets, daily range): BP systolic 134–180; BP diastolic 64–92
[2017-01-24 03:38] LABS: ABSOLUTE BASOPHIL COUNT 0 /CUMM (0.0-0.2); ABSOLUTE EOSINOPHIL COUNT 0.1 /CUMM (0.0-0.7); ABSOLUTE GRANULOCYTE CT 5.1 /CUMM (1.4-6.5); ABSOLUTE LYMPH COUNT 3.2 /CUMM (1.2-3.4); ABSOLUTE MONOCYTE COUNT 0.7 /CUMM (0.10-0.60); BASOPHIL % 0.3 % (0.0-2.0); EOSINOPHIL % 0.8 % (0-5); GRANULOCYTE % 56.3 % (42.2-75.2); HEMATOCRIT 37.5 % (37-47); MEAN CORPUSCULAR HGB 31.2 PG (27.0-31.0); MEAN CORPUSCULAR VOLUME 91.9 FL (81.0-99.0); MEAN PLATELET VOLUME 8.3 FL (7.4-10.4); PLATELET COUNT 208 /CUMM (130-400); RBC DISTRIBUTION WIDTH 12.5 % (11.5-14.5); RED BLOOD CELL CT 4.09 /CUMM (4.20-5.40); WHITE BLOOD CELL COUNT 9.1 /CUMM (4.8-10.8)
--- NOTE | 2017-01-24 08:15 | PN- Housestaff ---
Subjective Follow-up For: Hypertensive urgency Type 2 diabetes Complaints: headache 10, frontal and temporal area, denies vision changes, dizziness Tele-Events Since Last Visit: bradycardia, Hr 55-45. Subjective: Patient is seen and examined at the bedside. She was complaining of headache, which was different than yesterday. It was located on both side on temporal and frontal area. She denies any nausea, vomiting, runny nose, tenderness over the frontal area,vision changes, palpitation, chest pain, pain in abdomen. Review of Systems Constitutional: Denies: no symptoms. EENTM: Denies: double vision, visual changes. Cardiovascular: Denies: chest pain. Respiratory: Denies: orthopnea, short of breath. Gastrointestinal: Denies: no symptoms. Genitourinary: Denies: no symptoms. Musculoskeletal: Denies: no symptoms. Skin: Denies: no symptoms. Neurological/Psychological: Reports: headache. Objective Last 24 Hrs of Vital Signs/I&O Vital Signs Date Time Temp Pulse Resp B/P Pulse O2 O2 Flow FiO2 Ox Delivery Rate 01/24 1937 180/01/24 1607 98.7 58 18 150/86 97 Room Air 01/24 1043 57 126/62 01/24 0815 97.8 54 18 134/64 94 Room Air 01/24 0800 Room Air 01/24 0400 97.9 55 18 148/78 97 Room Air 01/24 0200 97.9 65 18 148/70 97 Room Air 01/24 0000 96 01/24 0000 97.9 52 18 142/70 97 Room Air 01/24 0000 97.9 52 18 142/70 96 Room Air 01/23 2355 97.9 52 18 142/70 96 Room Air 01/23 2305 97.1 68 18 177/97 94 Room Air 01/23 2240 58 170/94 01/23 2224 64 176/94 01/23 2213 64 166/88 96 Room Air 01/230 65 180/90 01/23 2126 65 180/90 95 Room Air 01/23 2117 65 18 191/ 95 Room Air 01/24 2116 65 18 191/01/238 180/92 01/23 2019 190/96 Intake & Output 01/24 1600 01/24 0800 01/24 0000 Intake Total 600 620 60 Output Total 240 Balance 600 380 60 Intake, Oral 600 620 60 Output, Urine 240 Patient 68.039 kg Weight Physical Exam General Appearance: Alert, Oriented X3, Cooperative, No Acute Distress Skin: No Rashes, No Breakdown, No Significant Lesion HEENT: Atraumatic, PERRLA, EOMI Neck: Supple, No JVD Cardiovascular: Normal S1, Normal S2 Lungs: Clear to Auscultation, Normal Air Movement Abdomen: Soft, No Tenderness Neurological: Normal Gait, Normal Speech, Strength at 5/5 X4 Ext Extremities: No Clubbing, No Cyanosis, No Edema, Normal Pulses Vascular: Normal Pulses, Pulses Symmetrical Current Medications: Current Medications Sig/Yehuda Start time Last Medication Dose Route Stop Time Status Admin Acetaminophen 650 MG Q6P PRN 01/24 0030 AC 01/24 PO 0750 Bisoprolol Fumarate 5 MG BID 01/24 1000 AC PO Enalaprilat 1.25 MG ONCE ONE 01/23 2130 DC 01/23 IV 01/23 2131 213 Enalaprilat 0 .STK-MED ONE 01/23 2130 OK IV Enalaprilat 0 .STK-MED ONE 01/24 2112 OK IV Enalaprilat 1.25 MG ONCE ONE 01/23 2100 DC 01/23 IV 01/23 2101 2116 Enoxaparin Sodium 40 MG DAILY 01/24 1000 AC 01/24 SC 1042 Hydromorphone HCl 0.2 MG ONCE ONE 01/24 1230 DC 01/24 IV 01/24 1231 1622 Insulin Aspart 0 TIDAC 01/24 0800 AC SC Lisinopril 40 MG BID 01/24 1000 AC 01/24 PO 1043 Nicotine 7 MG Q24 01/24 1000 AC 01/24 TOP 1043 Nitroglycerin 0 .STK-MED ONE 01/24 2136 [facility] Nitroglycerin 0.5 GM ONCE ONE 01/230 OK 01/23 TOP 01/23 2131 2143 Patient Medication 1 ED .STK-MED ONE 01/24 1133 DC Teaching ED 01/24 1134 Assessment/Plan Assessment: Ms. St is a pleasant 66 year old Israeli speaking female with PMH HTN and type 2 DM who presents to the [place] ED with chief complaint of high blood pressure, chest discomfort and dizziness.Patient is mostly Israeli speaking and therefore most of the history is obtained from the patient's daughter. Plans - Hypertensive urgency under evaluation * Serial troponins were negative. * EKG showed 1 millimeter depression in V5 and V6 * Vital signs every shift * Watch for signs of end organ damage * Neurocheck every shift * Strict intake output charting * Target BP - SBP -140-160, DBP - 92-100 * We will continue home medication -tab lisinopril 40mg BID, tab bisoprolol 5 mgs BID * Our pharmacy does not have bisoprolol, but patient brought it from home, and have it. So you can use it if needed. * We will evaluate patient for secondary hypertension -ultrasound of kidney to rule out renal artery stenosis. * Follow-up plasma renin/aldosterone/catechol mines in urine/metanephrine in urine * Spot urine creatinine is 65. Type 2 diabetes mellitus - * Blood sugar monitoring 3 times a day/Bed time * NovoLog according to the sliding scale Chronic smoking * We'll continue nicotine patch 7 milligrams per day Headache -probably tension headache, but it is not responding to Tylenol * Neuro check every shift * Injection Dilaudid 0.2 milligrams state, and IV as needed Diet-diabetic and heart healthy diet DVT prophylaxis-ALP S/heparin CODE STATUS-full code Problem List: 1. Hypertensive urgency 2. Type 2 diabetes mellitus Pain Ratin Pain Location: head Pain Goal: Remain pain free Pain Plan: mild Tomorrow's Labs & Rationales: bep -f/u to r/o renal involvement secondary to HTN
--- NOTE | 2017-01-24 21:51 | ULTRASOUND REPORT ---
Report generated to reflect that Doppler was performed. Please see report of renal ultrasound same day I did not review the images
--- NOTE | 2017-01-24 22:42 | Cons- Cardiology ---
General Information and HPI Consulting Request Date of Consult: 01/24/17 Requested By: DOYLE NINA PhD,JENNIFER Bartholomew History of Present Illness: This patient is a 66 year old female with history of hypertension and diabetes who presented to the ER with complaints of severe, recurrent headaches and was found to be severely hypertensive. She also reports a mild, nonradiating chest heaviness. There is no associated nausea, vomiting or diaphoresis. At her baseline she is only mildly active but can walk at a normal pace without chest discomfort or shortness of breath. Dizziness was also reported and she has brief bursts of palpitations about once a week. The patient has been of Bisoprolol but with inadequate control of her hypertension. Ramipril was subqequently added without much additional beneficial effect. Allergies/Medications Allergies: Coded Allergies: No Known Allergies (01/22/17) Home Med List: Bisoprolol Fumarate 5 MG TABLET 1 TAB PO DAILY HTN (Reported) [GLICLADA] 30 MG TAB 1 TAB PO BID DIABETES (Reported) Lisinopril 20 MG TABLET 1 TAB PO DAILY HTN (Reported) Ramipril (Altace) 5 MG CAPSULE 1 CAP PO DAILY HEART (Reported) Review of Systems Review of Systems: A review of systems is not obtainable. Past History Travel History Traveled to [place] past 21 day No Medical History Blood Transfusion Hx: No Neurological: NONE EENT: NONE Cardiovascular: hypertension Respiratory: NONE Gastrointestinal: NONE Hepatic: NONE Renal: NONE Musculoskeletal: NONE Psychiatric: NONE Endocrine: diabetes Surgical History Surgical History: non-contributory Psychosocial History Where Do You Live? Home Services at Home: None Primary Language: Luxembourger Smoking Status: Current Everyday Smoker ETOH Use: occasional use Illicit Drug Use: denies illicit drug use Living Will? no Functional Ability ADLs Independent: dressing, eating, toileting, bathing. Ambulation: independent IADLs Independent: shopping, housework, finances, food prep, telephone, transportation , medication admin. Exam & Diagnostic Data Vital Signs and I&O Vital Signs Date Time Temp Pulse Resp B/P Pulse O2 O2 Flow FiO2 Ox Delivery Rate 01/24 2105 144/82 01/24 1937 180/92 01/24 1607 98.7 58 18 150/86 97 Room Air 01/24 1043 57 126/62 01/24 0815 97.8 54 18 134/64 94 Room Air 01/24 0800 Room Air 01/24 0400 97.9 55 18 148/78 97 Room Air 01/24 0200 97.9 65 18 148/70 97 Room Air 01/24 0000 96 01/24 0000 97.9 52 18 142/70 97 Room Air 01/24 0000 97.9 52 18 142/70 96 Room Air 01/23 2355 97.9 52 18 142/70 96 Room Air 01/23 2305 97.1 68 18 177/97 94 Room Air 01/23 2240 58 170/94 Intake & Output 01/24 1600 01/24 0800 01/24 0000 01/23 1600 01/23 0800 01/23 0000 Intake Total 600 620 60 Output Total 240 Balance 600 380 60 Intake, Oral 600 620 60 Output, Urine 240 Patient 150 lb Weight Physical Exam: General: WD/ WN female in NAD; alert and oriented x 3 HEENT: NC/ AT, PERRL, EOMI Neck: no JVD, no carotid bruit Heart: RRR w/o murmur Lungs: clear bilaterally Abdomen: soft, NT, +ve bowel sounds Extremities: no edema Diagnostic Data EKG Results sinus rhythm Assessment/Plan Assessment/Plan * This patient has a hypertensive urgency with difficult to control blood pressure unresponsive to multiple medications. We will obtain a renal ultrasound to assess for renal artery stenosis. Check for hyperaldosteronism and for pheochromocytoma. * This patient should be on a low sodium diet. * Obtain an echocardiogram to assess for LVH and to look for regional wall motion abnormalities. * Begin Bisoprolol 10mg BID and Lisinopril 40mg BID. We will increase antihypertensive medications tomorrow if she remains hypertensive. Our goal for today is a 20% reduction to about 160mmHg systolic. * This patient has chest pain that is likely related to subendocardial ischemia from severe hypertension. When more stable we will risk stratify with a pharocologic stress test. The patient is advised to quit smoking. Check a fasting lipid profile. Begin aspirin 81mg daily. Consult Acknowledgment - Thank you for your consult request.
[2017-01-25 02:34] VITALS: BP 124/80
--- NOTE | 2017-01-25 07:18 | ULTRASOUND REPORT ---
EXAMINATION: US RETROPERITONEAL COMPLETE (RENAL) CLINICAL INFORMATION: Hypertensive urgency. COMPARISON: None. TECHNIQUE: Real-time imaging of the kidneys and bladder. FINDINGS: RIGHT KIDNEY: 10.7 x 4.5 x 4.9 cm (SAG x AP x TRV). The kidney is normal in size, contour, and echogenicity. Renal cortical thickness is normal. No calculi or focal parenchymal lesions. No hydronephrosis. On Doppler exam right renal artery proximal velocity 74 cm/s, mid renal artery velocity measures 99 cm/s and distal segment velocity measures 98 cm/s. Renal/aortic ratio is 1.3. Average resistive index is 0.7. Proximal aortic velocity measures 75 cm/s. LEFT KIDNEY: 9.1 x 5.9 x 4.6 cm (SAG x AP x TRV). The kidney is normal in size, contour, and echogenicity. Renal cortical thickness is normal. No calculi or focal parenchymal lesions. No hydronephrosis. On renal Doppler exam left renal artery proximal velocity measures 94 cm/s, mid renal artery velocity measures 103 cm/s and distal segment velocity measures 114 cm/s. Renal/aortic ratio measures 1.5. Average resistive index is 0.8. BLADDER: Well distended and normal. Bilateral ureteral jets are demonstrated. IMPRESSION: Normal renal ultrasound. Normal renal Doppler ultrasound with no evidence to suggest renal artery stenosis.
[2017-01-25 08:36] VITALS: BP 147/81
--- NOTE | 2017-01-25 08:58 | PN- Housestaff ---
See Addendum Subjective Follow-up For: Hypertensive urgency Type 2 diabetes Complaints: no complaints Tele-Events Since Last Visit: JALILR, JOVON Subjective: Patient is seen and examined at the bedside.She was not having any active complains. Denies headache, chest pain,SOB. Review of Systems Constitutional: Denies: no symptoms. Comments: no any active complains Objective Last 24 Hrs of Vital Signs/I&O Vital Signs Date Time Temp Pulse Resp B/P Pulse O2 O2 Flow FiO2 Ox Delivery Rate 01/25 1028 150/72 01/25 0836 96.6 58 16 147/81 94 Room Air 01/25 0234 124/80 01/24 2322 98.4 58 20 144/90 96 Room Air 01/24 2210 52 124/64 01/24 2105 144/82 01/24 1937 180/92 01/24 1607 98.7 58 18 150/86 97 Room Air Intake & Output 01/25 1600 01/25 0800 01/25 0000 Intake Total 100 770.1 Output Total 275 375 Balance -175 395.1 Intake, IV 10.1 Intake, Oral 100 760 Output, Urine 275 375 Physical Exam General Appearance: Alert, Oriented X3, Cooperative, No Acute Distress Cardiovascular: Regular Rate, Normal S1, Normal S2 Lungs: Clear to Auscultation, Normal Air Movement Abdomen: Soft, No Tenderness Neurological: Normal Gait, Normal Speech Extremities: No Clubbing, No Cyanosis, No Edema Current Medications: Current Medications Sig/Yehuda Start time Last Medication Dose Route Stop Time Status Admin Acetaminophen 650 MG Q6P PRN 01/24 0030 AC 01/24 PO 0750 Aspirin 81 MG DAILY 01/25 1000 AC 01/25 PO 1029 Bisoprolol Fumarate 10 MG BID 01/25 1000 UNVr PO Bisoprolol Fumarate 5 MG BID 01/24 1000 DC PO Enoxaparin Sodium 40 MG DAILY 01/24 1000 AC 01/25 SC 1029 Hydromorphone HCl 0.2 MG ONCE ONE 01/24 1230 DC 01/24 IV 01/24 1231 1622 Insulin Aspart 0 TIDAC 01/24 0800 AC 01/25 SC 0914 Lisinopril 40 MG BID 01/24 1000 AC 01/25 PO 1028 Nicotine 7 MG Q24 01/24 1000 AC 01/25 TOP 0914 Patient Medication 1 ED .STK-MED ONE 01/24 1133 DC Teaching ED 01/24 1134 Assessment/Plan Assessment: Ms. St is a pleasant 66 year old Stateless speaking female with PMH HTN and type 2 DM who presents to the [place] ED with chief complaint of high blood pressure, chest discomfort and dizziness.Patient is mostly Stateless speaking and therefore most of the history is obtained from the patient's daughter. Plans - Discharge today, after echo and if patient is stable. Hypertensive urgency under evaluation * Serial troponins were negative. * EKG showed 1 millimeter depression in V5 and V6 * We will follow echocardiogram. * We started patine on Aspirin 81mg PO OD. * Vital signs every shift * Watch for signs of end organ damage * Neurocheck every shift * Strict intake output charting * Target BP - SBP -140-160, DBP - 92-100 * We will continue home medication -tab lisinopril 40mg BID * We will increase tab bisoprolol 10 mgs BID * We will evaluate patient for secondary hypertension -ultrasound of kidney ruled out renal artery stenosis. * Follow-up plasma renin/aldosterone/catechol mines in urine/metanephrine in urine * Spot urine creatinine is 65. Type 2 diabetes mellitus - * Blood sugar monitoring 3 times a day/Bed time * NovoLog according to the sliding scale Chronic smoking * We'll continue nicotine patch 7 milligrams per day Headache -recovered * Neuro check every shift * Injection Dilaudid 0.2 milligrams state, and IV as needed Diet-diabetic and heart healthy diet DVT prophylaxis-ALP S/heparin CODE STATUS-full code Problem List: 1. Type 2 diabetes mellitus 2. Hypertensive urgency Pain Ratin Pain Location: head Pain Goal: Remain pain free Pain Plan: mild, avoid NSAIDs Tomorrow's Labs & Rationales: LIpid profile - it was not done yeterday, as pt already had her breakfast. Advised to be done empty stomach DVT/Prophylaxis: mechanical, pharmacological, early ambulation low risk
[2017-01-25] MEDS ORDERED: ASPIRIN81 M4 PO (11:17)
[2017-01-25] MEDS ORDERED: BISOPROLOL FUMAR5 M1 PO (11:17)
[2017-01-25] MEDS ORDERED: LISINOPRIL40 M1 PO (11:18)
--- NOTE | 2017-01-25 11:23 | Patient Discharge Instructions ---
Discharge Instructions General Discharge Information You were seen/treated for: Uncontrolled hypertension Special Instructions: please follow up with Dr Garcia with in a week of discharge You may need stress test in future. continue all medication as advised you should quit smoking Diet Recommended Diet: Heart Healthy, low salt diet Activity Full Activity/No Limits: No (as tolerated) Activity Self Limited: Yes Acute Coronary Syndrome Inclusion Criteria At DC or during hospital stay patient has or had the following: ACS DIAGNOSIS No Discharge Core Measures Meds if any: Prescribed or Continued at Discharge Meds if any: NOT Prescribed or Continued at Discharge Congestive Heart Failure Inclusion Criteria At DC or during hospital stay patient has or had the following: CHF DIAGNOSIS No Discharge Core Measures Meds if any: Prescribed or Continued at Discharge Meds if any: NOT Prescribed or Continued at Discharge Cerebrovascular accident Inclusion Criteria At DC or during hospital stay patient has or had the following: CVA/TIA Diagnosis No Discharge Core Measures Meds if any: Prescribed or Continued at Discharge Meds if any: NOT Prescribed or Continued at Discharge Venous thromboembolism Inclusion Criteria VTE Diagnosis No VTE Type NONE VTE Confirmed by (Test) NONE Discharge Core Measures - Per Current guidelines, there needs to be overlap - treatment for the first 5 days of Warfarin therapy. - If discharged on Warfarin prior to 5 days of - overlap therapy, the patient will need to be - assessed for post discharge needs including - *Post discharge parental anticoagulation - *Warfarin and/or parental anticoagulation education - *Follow up date to check INR post discharge At least 5 days overlap therapy as Inpatient No Meds if any: Prescribed or Continued at Discharge Note: Overlap Therapy is Warfarin and Anticoagulant Meds if any: NOT Prescribed or Continued at Discharge
[2017-01-25] MEDS ORDERED: NICOTINE PATCH1 EAC1 TOP (11:29)
--- NOTE | 2017-01-25 11:44 | Discharge Summary ---
See Addendum Visit Information Visit Dates Admission Date: 01/23/17 Discharge Date: 01/25/2017 Hospital Course Course Attending Physician: DOYLE NINA PhD,JENNIFER Bartholomew Primary Care Physician: NUVIA NINA,FATUMA Gamino Hospital Course: Ms. St is a pleasant 66 year old [place] Islander speaking female with PMH HTN and type 2 DM who presents to the [place] ED with chief complaint of high blood pressure, chest discomfort and dizziness.Patient is mostly [place] speaking and therefore most of the history is obtained from the patient's daughter. Vital signs at the time of admission-temperature 97.7, heart rate 66, respiratory rate 22, blood pressure 217/106, SPO2 95% on room air. Hypertensive urgency - She was given enalaprilat 1.25 mg IV x 2 while in the ED and BP dropped from 217 /106 to 170/94. She was admitted to telemetry for further monitoring. We started patient on tablet, aspirin 81 mgs , tablet lisinopril 40 mgs BID, tablet bisoprolol 10 mgs BID with target not to drop blood pressure more than 25% .Further blood workup was within normal limits. Initial EKG showed NSR, HR 56, small Q waves in III, aVF and 1 mm depression in V5 and V6.CXR does not show any acute changes.We did send blood workup to rule out secondary hypertension. Ultrasound of abdomen was negative for any evidence of renal artery stenosis. Echocardiogram was done which showed-Normal EF of 55% with impaired LV relaxation. Hospital Course remained uneventful. We discharged patient with advised to follow-up with Dr. Garcia within a week of discharge. We also advised to quit smoking, avoid salt, and take heart healthy diet. Chronic smoking- She is still smoking 1 pack per day, advised to quit as it is a risk factor for stroke with hypertension. Allergies: Coded Allergies: No Known Allergies (01/22/17) Disposition Summary Disposition Principal Diagnosis: Hypertensive urgency Additional Diagnosis: Type 2 diabetes mellitus Chronic smoking Discharge Disposition: home or self care Discharge Instructions General Discharge Information Code Status: Full Code Patient's Diet: Heart healthy diet, low-sodium diet Patient's Activity: As tolerated Follow-Up Instructions/Appts: Please follow-up with Dr. Garcia within a week of discharge You may need stress test in future. Please take the medication as advised Please quit the smoking Please follow-up with your PCP within a week of discharge Medications at Discharge Discharge Medications: Stop taking the following medications: Bisoprolol Fumarate (Bisoprolol Fumarate) 5 MG TABLET ORAL DAILY Ramipril (Altace) 5 MG CAPSULE ORAL DAILY Lisinopril (Lisinopril) 20 MG TABLET ORAL DAILY Continue taking these medications: [GLICLADA] 30 MG TAB 1 Tablet ORAL TWICE DAILY Comments: NOT GIVEN IN HOSPITAL Start taking the following new medications: Aspirin (Aspirin*) 81 MG TAB.CHEW 81 Milligram ORAL DAILY Qty = 90 No Refills Comments: Last Taken: 01/29/17 Time: 9 AM Lisinopril (Lisinopril) 40 MG TABLET 1 Tablet ORAL DAILY Qty = 30 No Refills Comments: Last Taken: 01/29/17 Time: 9 AM Nicotine (Nicotine Patch) 7 MG/24 HOUR PATCH.TD24 7 Milligram On the skin EVERY 24 HOURS Qty = 30 No Refills Comments: Last Taken: 01/29/17 Time: 9 AM Amlodipine Besylate (Amlodipine Besylate) 5 MG TABLET 1 Tablet ORAL DAILY Qty = 30 No Refills Comments: NOT GIVEN IN HOSPITAL Copies To: danika beltran Attending MD Review Statement Documenting Attending: DOYLE NINA PhD,JENNIFER Bartholomew
[2017-01-25] MEDS ORDERED: BISOPROLOL FUMA10 M1 PO (14:44)
[2017-01-25 16:34] VITALS: BP 131/79
--- NOTE | 2017-01-25 18:28 | PN- Cardiology ---
Subjective Subjective: * Blood pressure is now well controlled on current drug regimen. * No complaints * no evidence of renal artery stenosis on her abdominal ultrasound Objective Vital Signs and I&Os Vital Signs Date Time Temp Pulse Resp B/P Pulse O2 O2 Flow FiO2 Ox Delivery Rate 01/25 1634 98.1 64 18 131/79 95 Room Air 01/25 1028 150/72 01/25 0836 96.6 58 16 147/81 94 Room Air 01/25 0234 124/80 01/24 2322 98.4 58 20 144/90 96 Room Air 01/24 2210 52 124/64 01/24 2105 144/82 01/24 1937 180/92 Intake & Output 01/25 1600 01/25 0800 01/25 0000 01/24 1600 01/24 0800 01/24 0000 Intake Total 400 100 770.1 600 620 60 Output Total 650 275 375 240 Balance -250 -175 395.1 600 380 60 Intake, IV 10.1 Intake, Oral 400 100 760 600 620 60 Output, Urine 650 275 375 240 Patient 150 lb Weight Physical Exam: General: WD/ WN female in NAD; alert and oriented x 3 Neck: no JVD, no carotid bruit Heart: RRR w/o murmur Lungs: clear bilaterally Extremities: no edema Assessment/Plan Assessment/Plan * Causes of secondary hypertension are still pending. We can follow up on these labs as an outpatient. No evidence of renal artery stenosis by ultrasound. * Continue Bisoprolol 10mg daily and Lisinopril 40mg BID. Low sodium diet. * Continue aspirin. * Patient may be discharged to home with follow up in the office in one week tonight or tomorrow AM. Continue telemetry? No
--- NOTE | 2017-01-25 18:39 | Admission Certification ---
Admission Certification Certification Statement - As attending physician, I certify that at the time of - admission, based on clinical presentation, severity of - symptoms, need for further diagnostic testing and - therapeutic interventions, and risk of adverse outcomes - without in-hospital treatment, in my clinical assessment, - this patient requires an acute hospital stay for a minimum - of two nights or longer. I have also considered psychsocial - factors such as support system, advanced age, financial - issues, cognitive issues, and failed out-patient treatments, - past re-admission history, safety of patient, and lack of - compliance as applicable. Specific rationale supporting this admission is: This patient has severe hypertension that has been refractory to treatment. It is strongly suspected that greater than 48 hours will be needed to bring her pressure down to a safe level and ensure that it remains in this safe range consistently.
[2017-01-25 22:00] VITALS: BP 140/70
--- NOTE | 2017-01-25 22:44 | ECHOCARDIOGRAM REPORT ---
PILAR MONTESINOS Age: 66 : 1950 Gender: F Exam Date: 01/25/2017 11:30 Exam Location: [facility] Ht (in): 69 Wt (lb): 150 BSA: 1.82 BP: 147 / 81 Ordering Physician: CARMEN CHURCH MD Referring Physician: CARMEN CHURCH MD Technologist: Jadiel Dickson [facility] Room Number: 182-1 Indications: HYPERTENSION Rhythm: Sinus Technical Quality: good FINDINGS Left Ventricle Normal left ventricular size, wall thickness and systolic function with no obvious regional wall motion abnormalities. Diastolic filling pattern is consistent with impaired LV relaxation. The ejection fraction is visually estimated at 55%. Right Ventricle The right ventricle is normal in size and function. Right Atrium The right atrium is normal in size. Left Atrium The left atrium is normal in size. The interatrial septum is intact. Mitral Valve The mitral valve is normal in structure and function. There is no mitral regurgitation. Aortic Valve Structurally normal aortic valve without significant sclerosis or stenosis. There is no aortic regurgitation. Tricuspid Valve The tricuspid valve is normal in structure and function. There is trace tricuspid regurgitation. Pulmonary artery systolic pressure is normal. Pulmonic Valve Structurally normal pulmonic valve. There is no pulmonic regurgitation. Pericardium Normal pericardium without effusion. No pleural effusion. Great Vessels Normal aortic root dimension. The aortic arch and great vessels are well seen and are normal. CONCLUSIONS 1. Normal EF of 55% with impaired LV relaxation. 2. Trace tricuspid regurgitation. Luis Garcia M.D. (Electronically Signed) Final Date: 25 January 2017 22:43 MEASUREMENTS (Male / Female) Normal Values 2D ECHO LV Diastolic Diameter PLAX 3.4 cm 4.2 - 5.9 / 3.9 - 5.3 cm LV Systolic Diameter PLAX 2.4 cm 2.1 - 4.0 cm LV Fractional Shortening PLAX 29.0 % 25 - 46 % LV Ejection Fraction 2D Teich 56.9 % IVS Diastolic Thickness 1.1 cm LVPW Diastolic Thickness 1.1 cm LV Relative Wall Thickness 0.7 RV Internal Dim ED PLAX 3.0 cm 1.9 - 3.8 cm LVOT Diameter 1.9 cm Aortic Root Diameter 2.8 cm LA Systolic Diameter LX 2.8 cm 3.0 - 4.0 / 2.7 - 3.8 cm Ascending Aorta Diameter 2.9 cm DOPPLER AV Peak Velocity 114.0 cm/s AV Peak Gradient 5.2 mmHg AV Mean Velocity 78.7 cm/s AV Mean Gradient 3.0 mmHg AV Velocity Time Integral 22.6 cm LVOT Peak Velocity 107.0 cm/s LVOT Peak Gradient 4.6 mmHg LVOT Mean Velocity 58.0 cm/s LVOT Mean Gradient 2.0 mmHg LVOT Velocity Time Integral 21.4 cm LVOT Stroke Volume 60.7 cm AV Area Cont Eq vti 2.7 cm AV Area Cont Eq pk 2.7 cm MV Peak Velocity 78.6 cm/s MV Peak Gradient 2.5 mmHg MV Mean Velocity 44.7 cm/s MV Mean Gradient 1.0 mmHg Mitral E Point Velocity 51.8 cm/s Mitral A Point Velocity 69.6 cm/s Mitral E to A Ratio 0.7 MV PHT Velocity 70.6 cm/s MV Deceleration [place] 358.0 cm/s MV Pressure Half Time 59.2 ms MV Area PHT 3.7 cm MV Deceleration Time 461.0 ms TR Peak Velocity 213.0 cm/s TR Peak Gradient 18.1 mmHg Right Atrial Pressure 5.0 mmHg Pulmonary Artery Systolic Pressu 23.1 mmHg Right Ventricular Systolic Press 23.1 mmHg PV Peak Velocity 108.0 cm/s PV Peak Gradient 4.7 mmHg PV Mean Velocity 68.0 cm/s PV Mean Gradient 2.0 mmHg PV Velocity Time Integral 25.0 cm
[2017-01-26 08:08] VITALS: BP 124/80
--- NOTE | 2017-01-26 08:17 | PN- Housestaff ---
Subjective Follow-up For: Hypertensive urgency Type 2 diabetes Complaints: no complaints Tele-Events Since Last Visit: NSR, sinus bradycardia, JOVON Subjective: Patient is seen and examined at the bedside. She was not having any active complain. She told that she has a small bump on the left popliteal fossa. I advised her to follow-up with the PCP for further evaluation and the management. Review of Systems Constitutional: Denies: no symptoms. Comments: Patient does not have any active complaints Objective Last 24 Hrs of Vital Signs/I&O Vital Signs Date Time Temp Pulse Resp B/P Pulse O2 O2 Flow FiO2 Ox Delivery Rate 01/26 1008 57 136/88 01/26 0808 99.0 48 16 124/80 95 Room Air 01/25 2200 50 140/70 01/25 2200 97.5 52 20 140/70 96 Room Air Intake & Output 01/26 1600 01/26 0800 01/26 0000 Intake Total 300 100 200 Output Total Balance 300 100 200 Intake, Oral 300 100 200 Physical Exam General Appearance: Alert, Oriented X3, Cooperative Cardiovascular: Normal S1, Normal S2 Lungs: Clear to Auscultation, Normal Air Movement Extremities: No Clubbing, No Cyanosis, No Edema Current Medications: Current Medications Sig/Yehuda Start time Last Medication Dose Route Stop Time Status Admin Acetaminophen 650 MG Q6P PRN 01/24 0030 DCD 01/24 PO 0750 Aspirin 81 MG DAILY 01/25 1000 DCD 01/26 PO 1008 Bisoprolol Fumarate 10 MG DAILY 01/25 1600 DCD 01/26 PO 1008 Enoxaparin Sodium 40 MG DAILY 01/24 1000 DCD 01/26 SC 1009 Insulin Aspart 0 TIDAC 01/24 0800 DCD 01/26 SC 1211 Lisinopril 40 MG BID 01/24 1000 DC 01/26 PO 1008 Nicotine 7 MG Q24 01/24 1000 DCD 01/26 TOP 1007 Last 24 Hrs of Lab/[place] Results Last 24 Hrs of Labs/Mics: Laboratory Tests 01/26/17 0655: Triglycerides 161 H, Cholesterol 241 H, LDL Cholesterol, Calc 162 H, HDL Cholesterol 47, Cholesterol/HDL Ratio 5 H Assessment/Plan Assessment: Ms. St is a pleasant 66 year old [place] speaking female with PMH HTN and type 2 DM who presents to the [place] ED with chief complaint of high blood pressure, chest discomfort and dizziness.Patient is mostly [place] speaking and therefore most of the history is obtained from the patient's daughter. Plans - Discharge today Hypertensive urgency under evaluation * Serial troponins were negative. * EKG showed 1 millimeter depression in V5 and V6 * Eco-showed impaired LV relaxation, LVEF 55% * We we will continue Aspirin 81mg PO OD. * We will continue home medication -tab lisinopril 40mg once a day and start her on tablet amlodipine 5 milligrams once a day * We will stop tablet bisoprolol as advised by Dr. Chavarria * -ultrasound of kidney ruled out renal artery stenosis. * Follow-up plasma renin/aldosterone/catechol mines in urine/metanephrine in urine * Spot urine creatinine is 65. Type 2 diabetes mellitus - * We will restart her on home medication Chronic smoking * We'll continue nicotine patch 7 milligrams per day Headache -recovered Diet-diabetic and heart healthy diet DVT prophylaxis-ALP S/heparin CODE STATUS-full code Problem List: 1. Hypertensive urgency 2. Type 2 diabetes mellitus 3. Hypertension Pain Ratin Pain Location: Not applicable Pain Goal: Remain pain free Pain Plan: Mild Tomorrow's Labs & Rationales: Not required patient is going home
[2017-01-26 10:08] VITALS: BP 136/88
[2017-01-26] MEDS ORDERED: NORVASC5 M1 PO (10:57)
--- NOTE | 2017-01-26 11:02 | PN- Cardiology ---
Subjective Subjective: The patient is feeling better. Blood pressure is under control. No chest pain. No palpitations. Headache has resolved. No lightheadedness or dizziness. No nausea or vomiting. She is noted to be bradycardic during the night with heart rate in the 40s for multiple hours. Objective Vital Signs and I&Os Vital Signs Date Time Temp Pulse Resp B/P Pulse O2 O2 Flow FiO2 Ox Delivery Rate 01/26 1008 57 136/88 01/26 0808 99.0 48 16 124/80 95 Room Air 01/25 2200 50 140/70 01/25 2200 97.5 52 20 140/70 96 Room Air 01/25 1634 98.1 64 18 131/79 95 Room Air Intake & Output 01/26 1600 01/26 0801/26 0000 01/25 1600 01/25 0800 01/25 0000 Intake Total 100 200 400 100 770.1 Output Total 650 275 375 Balance 100 200 -250 -175 395.1 Intake, IV 10.1 Intake, Oral 100 200 400 100 760 Output, Urine 650 275 375 Physical Exam: Gen: NAD HEENT: normal Lungs: clear to auscultation, normal resp. effort Heart: RRR, S1, S2, no murmurs Abdomen: Soft, nontender, no masses Extremities: No clubbing, cyanosis, or edema. Neuro: Alert and oriented x 3, cranial nerves intact Current Medications: Current Medications Sig/Yehuda Start time Last Medication Dose Route Stop Time Status Admin Acetaminophen 650 MG Q6P PRN 01/24 0030 AC 01/24 PO 0750 Aspirin 81 MG DAILY 01/25 1000 AC 01/26 PO 1008 Bisoprolol Fumarate 10 MG DAILY 01/25 1600 AC 01/26 PO 1008 Enoxaparin Sodium 40 MG DAILY 01/24 1000 AC 01/26 SC 1009 Insulin Aspart 0 TIDAC 01/24 0800 AC 01/25 SC 1246 Lisinopril 40 MG BID 01/24 1000 DC 01/26 PO 1008 Nicotine 7 MG Q24 01/24 1000 AC 01/26 TOP 1007 Results Last 48 Hrs of Labs/Mics: Laboratory Tests 01/26/17 0655: Triglycerides 161 H, Cholesterol 241 H, LDL Cholesterol, Calc 162 H, HDL Cholesterol 47, Cholesterol/HDL Ratio 5 H 01/25/17 0600: Triglycerides Cancelled, Cholesterol Cancelled, LDL Cholesterol, Calc Cancelled, HDL Cholesterol Cancelled, Cholesterol/HDL Ratio Cancelled Recent Imaging Studies: Echocardiogram 01/25/17: 1. Normal EF of 55% with impaired LV relaxation. 2. Trace tricuspid regurgitation. Assessment/Plan Assessment/Plan Assessment: 1. Hypertensive urgency, improved 2. Sinus bradycardia in the 40s secondary to bisoprolol Plan: * Given the significant sinus bradycardia, I recommend discontinuing bisoprolol. * Start amlodipine 5 mg daily for blood pressure control in place of bisoprolol * Change lisinopril to 40 mg daily since this is generally considered at the maximum dose * Discharge to home. * Follow up with Dr. Handley and Dr. Radha perla 1 week Continue telemetry? No
[2017-01-26] MEDS ORDERED: AMLODIPINE BESYL5 M1 PO (11:10)
== END 2017-01-26 12:45 | DRG 199 ==
LOC: ENRESERVTM → ENRESERVDT → ERH 19:57 → 1NO 21:55 → ENPENDDIS 21:55 → ERHI 21:55 → 1NO 23:42
PROVIDERS: Emergency Medicine; Internal Medicine; ADMIT Internal Medicine Interventional Cardiology
DX: I16.0 Hypertensive urgency (principal); E11.9 Type 2 diabetes mellitus without complications; Z79.84 Long term (current) use of oral hypoglycemic drugs; Z82.49 Family history of ischemic heart disease and other diseases of the circulatory system; F17.210 Nicotine dependence, cigarettes, uncomplicated; E78.5 Hyperlipidemia, unspecified
CPT/HCPCS: 1NP; 1NSP; 36415; 76775; 82436; 82570; 93005; 93010; 93306; 96374; 99291; J1650; J3490

== ENCOUNTER 2017-01-28 02:23 | Observation (INO) | payer OTHER ==
[~2017-01-28] VITALS: Ht 175.3 cm; Wt 73.5 kg
[~2017-01-28 02:23] MED LIST changes: +AMLODIPINE BESYL5 M1 PO; +ASPIRIN81 M4 PO; +LISINOPRIL20 M1 PO; +LISINOPRIL40 M1 PO; +NICOTINE PATCH1 EAC1 TOP; +NORVASC5 M1 PO; +[UNRECOGNIZED DRUG - OTHER] PO
--- NOTE | 2017-01-28 02:33 | NUR ---
PT FROM HOME C/O HTN. PTS DAUGHTER STATES THAT THIS PAST WED-SAT PT WAS ADMITTED TO [facility] ON TELE UNIT AND D/C'D WITH STABLE HIGH BP. PT FOLLOWED UP WITH DR AND PTS REGULARLY CHECKS BP AND STATED THAT IT WAS CONTINUALLY HIGHER THAN NORMAL FROM 1800, PTS DAUGHTER ALSO STATES THAT PT TOOK ADDTIONAL BP MEDICATION TO TRY AND LOWER IT. PT AWOKE AROUND 0200 WITH A TIRADO AT THE BASE OF THE SKULL. PTS BP IN TRIAGE 173/112. THIS RN WILL CHECK MANUALLY.
--- NOTE | 2017-01-28 02:36 | ED GENERAL ADULT ---
History of Present Illness General Chief Complaint: General Adult Stated Complaint: PER DAUGHTER PT HYPERTENSIVE Source: patient Exam Limitations: no limitations Vital Signs & Intake/Output Vital Signs & Intake/Output Vital Signs Date Time Temp Pulse Resp B/P Pulse O2 O2 Flow FiO2 Ox Delivery Rate 01/28 0350 142/78 01/28 0350 98 Room Air 01/28 0327 156/79 01/28 0324 138/78 01/28 0321 147/80 01/28 0318 66 156/78 01/28 0244 174/90 01/28 0230 98.5 69 18 173/112 95 Room Air Allergies Coded Allergies: No Known Allergies (01/22/17) Reconcile Medications Amlodipine Besylate 5 MG TABLET 1 TAB PO DAILY HTN Aspirin (Aspirin*) 81 MG TAB.CHEW 81 MG PO DAILY CAD [GLICLADA] 30 MG TAB 1 TAB PO BID DIABETES (Reported) Lisinopril 40 MG TABLET 1 TAB PO DAILY HTN Nicotine (Nicotine Patch) 7 MG/24 HOUR PATCH.TD24 7 MG TOP Q24 Smoking Triage Note: PT FROM HOME C/O HTN. PTS DAUGHTER STATES THAT THIS PAST SAT-SAT PT WAS ADMITTED TO [facility] ON TELE UNIT AND D/C'D WITH STABLE HIGH BP. PT FOLLOWED UP WITH DR AND PTS REGULARLY CHECKS BP AND STATED THAT IT WAS CONTINUALLY HIGHER THAN NORMAL FROM 1800, PTS DAUGHTER ALSO STATES THAT PT TOOK ADDTIONAL BP MEDICATION TO TRY AND LOWER IT. PT AWOKE AROUND 0200 WITH A TIRADO AT THE BASE OF THE SKULL. PTS BP IN TRIAGE 173/112. THIS RN WILL CHECK MANUALLY. Triage Nurses Notes Reviewed? yes Onset: Gradual Duration: hour(s): Timing: single episode today Injury Environment: home Severity: moderate Modifying Factors: Improves With: rest. Associated Symptoms: chest pain HPI: 66 yo woman discharged 2 days ago with hypertensive urgency, presents with 4/10 substernal chest pressure and home blood pressure reading of 200/100 which began at approximately 6pm yesterday. Her daughter shares that she took an extra pill of her lisinopril 40mg this evening. She notes no radiation, shortness of breath, chills, wheezing. She is otherwise well. Past History Travel History Traveled to [place] past 21 day No Medical History Any Pertinent Medical History? see below for history Neurological: NONE EENT: NONE Cardiovascular: hypertension Respiratory: NONE Gastrointestinal: NONE Hepatic: NONE Renal: NONE Musculoskeletal: NONE Psychiatric: NONE Endocrine: diabetes History of MRSA: No History of VRE: No History of CDIFF: No Surgical History Surgical History: non-contributory Psychosocial History Services at Home None What is your primary language Fijian Tobacco Use: Quit >30 days ago Family History Hx Contributory? No Review of Systems Review of Systems Constitutional: Reports: no symptoms. EENTM: Reports: no symptoms. Respiratory: Reports: no symptoms. Cardiovascular: Reports: no symptoms. GI: Reports: no symptoms. Genitourinary: Reports: no symptoms. Musculoskeletal: Reports: no symptoms. Skin: Reports: no symptoms. Neurological/Psychological: Reports: no symptoms. Hematologic/Endocrine: Reports: no symptoms. Immunologic/Allergic: Reports: no symptoms. All Other Systems: Reviewed and Negative Physical Exam Physical Exam General Appearance: well developed/nourished, mild distress Head: atraumatic, normal appearance Eyes: Bilateral: normal appearance. Ears, Nose, Throat: normal pharynx, normal ENT inspection Neck: normal inspection, supple, full range of motion Respiratory: normal breath sounds, chest non-tender, no respiratory distress, quiet respiration, lungs clear Cardiovascular: regular rate/rhythm Gastrointestinal: normal bowel sounds, soft, non-tender Back: normal inspection, normal range of motion Extremities: normal inspection, normal capillary refill, normal range of motion, no edema Neurologic/Psych: no motor/sensory deficits, awake, alert, oriented x 3 Skin: intact, normal color, warm/dry Core Measures ACS in differential dx? Yes ASA ordered for poss ACS? Yes-ordered CVA/TIA Diagnosis: No Severe Sepsis Present: No Septic Shock Present: No Progress Differential Diagnoses I considered the following diagnoses in my evaluation of the patient: hypertenstive urgency, unstable angina vs other. Plan of Care: Orders Procedure Date/time Status Nothing by Mouth 01/28 B Active Saline Lock 01/[address] in observation 01/28 419 Active Misc Message 01/28 419 Active ED Holding Orders 01/28 419 Active Vital Signs 01/28 419 Active Code Status 01/28 419 Active TROPONIN LEVEL 01/28 225 Complete COMPREHENSIVE METABOLIC PANEL 01/28 225 Complete CBC WITHOUT DIFFERENTIAL 01/28 225 Complete EKG 01/28 225 Active Laboratory Tests 01/28/17 0300: Anion Gap 10, Estimated GFR > 60, BUN/Creatinine Ratio 28.0 H, Glucose 159 H, Calcium 9.8, Total Bilirubin 0.4, AST 29, ALT 50, Alkaline Phosphatase 142 H, Troponin I < 0.01, Total Protein 7.0, Albumin 4.3, Globulin 2.7, Albumin/ Globulin Ratio 1.6, CBC w Diff NO MAN DIFF REQ, RBC 4.36, MCV 92.9, MCH 31.4 H, RDW 12.4, MPV 8.8, Gran % 42.3, Lymphocytes % 46.2, Monocytes % 8.7, Eosinophils % 2.2, Basophils % 0.6, Absolute Granulocytes 3.1, Absolute Lymphocytes 3.3, Absolute Monocytes 0.6, Absolute Eosinophils 0.2, Absolute Basophils 0, PUBS MCHC 33.8 Diagnostic Imaging: Viewed by Me: Radiology Read. Discussed w/RAD: Radiology Read. CXR Impression: no acute abnormality, no infiltrates, normal size heart, normal mediastinum Initial ED EKG: normal axis, normal intervals, normal p-waves, normal QRS complex, normal sinus rhythm Comments: PATIENT: PILAR MONTESINOS PRESENT AGE: 66 PATIENT ACCOUNT NO: [id number] : 49 LOCATION: [facility] ORDERING PHYSICIAN: MARIA C LOVELL MD SERVICE DATE: 01/23/17 EXAM TYPE: RAD - XRY-CHEST XRAY, PA AND LATERAL EXAMINATION: XR CHEST CLINICAL INFORMATION: Pain. COMPARISON: None TECHNIQUE: 2 views of the chest were obtained. FINDINGS: Unfolding of thoracic vasculature. No significant abnormality is noted involving the heart, lungs, mediastinum, bony thorax or soft tissues. IMPRESSION: No active chest disease. DICTATED BY: VICTORINA MCKINNEY MD DATE/TIME DICTATED:01/23/172222 SPICE ROOM WORKER:STACI DATE/TIME TRANSCRIBED:01/23/172222 CONFIDENTIAL, DO NOT COPY WITHOUT APPROPRIATE AUTHORIZATION. <Electronically signed in Other Vendor System> SIGNED BY: VICTORINA MCKINNEY MD 01/23/172226 Departure Departure Disposition: STILL A PATIENT Condition: Stable Clinical Impression Primary Impression: Hypertensive urgency Secondary Impressions: Chest pain Referrals: FATUMA PEDERSEN MD (PCP/Family) Departure Forms: Customer Survey General Discharge Information Observation Note Spoke With: SHAY MUJICA MD Physician Advisor Notified: FRANCESCA DO,TRINITY L. Place Patient In: Non-ED OBS Care Area Rationale for Observation: My rational for observation is as follows . Pt discharged 2 days ago, had 4/10 chest pain and bp 200/100 at home.... required iv hydralazine iv and nitro sl for control of anginal type symptoms and improvement in her blood pressure.... Pt merits medical optimization (clonidine? hydralazine?), rule out, cards input, tele monitoring. Critical Care Note Critical Care Note Critical Care Time: 30-74 min
--- NOTE | 2017-01-28 02:44 | NUR ---
SEJAL GARCIAS CHECKED MANUAL BP 174/90, DR BRAVO INFORMED
--- NOTE | 2017-01-28 03:00 | NUR ---
IV EST #20 RIGHT FOREARM. BLOODWORK OBTAINED AND SENT TO LAB ([facility], [facility], [facility], [facility]).
--- NOTE | 2017-01-28 03:01 | NUR ---
EKG DONE AND SHOWN TO DR. BRAVO, PT PLACED ON MONITOR.
--- NOTE | 2017-01-28 03:22 | NUR ---
PT MEDICATED WITH 10MG APRESOLINE IV, 325MG ASA PO, AND 1 SL NITRO STAT PER EMAR, SEE VITAL SIGNS FOR BP.
[2017-01-28 03:24] LABS: ABSOLUTE BASOPHIL COUNT 0 /CUMM (0.0-0.2); ABSOLUTE EOSINOPHIL COUNT 0.2 /CUMM (0.0-0.7); ABSOLUTE GRANULOCYTE CT 3.1 /CUMM (1.4-6.5); ABSOLUTE LYMPH COUNT 3.3 /CUMM (1.2-3.4); ABSOLUTE MONOCYTE COUNT 0.6 /CUMM (0.10-0.60); BASOPHIL % 0.6 % (0.0-2.0); EOSINOPHIL % 2.2 % (0-5); GRANULOCYTE % 42.3 % (42.2-75.2); HEMATOCRIT 40.5 % (37-47); MEAN CORPUSCULAR HGB 31.4 PG (27.0-31.0); MEAN CORPUSCULAR HGB CONC 33.8 G/DL (33.0-37.0); MEAN CORPUSCULAR VOLUME 92.9 FL (81.0-99.0); MEAN PLATELET VOLUME 8.8 FL (7.4-10.4); PLATELET COUNT 218 /CUMM (130-400); RBC DISTRIBUTION WIDTH 12.4 % (11.5-14.5); RED BLOOD CELL CT 4.36 /CUMM (4.20-5.40); WHITE BLOOD CELL COUNT 7.2 /CUMM (4.8-10.8)
--- NOTE | 2017-01-28 05:32 | NUR ---
PT ADMIT TO RM 174-2 TELE OBS
--- NOTE | 2017-01-28 05:42 | History & Physical ---
LINDSAY RODRIGUEZ MD 01/28/17 0542: General Information and HPI MD Statement: I have seen and personally examined PILAR ST and documented this H&P. The patient is a 66 year old F who presented with a patient stated chief complaint of high blood pressure. Source of Information: patient, family, old records Exam Limitations: no limitations History of Present Illness: Ms. St is a pleasant 66 year old Salvadorean speaking female with PMH HTN and type 2 DM who presents to the [facility] ED with chief complaint of high blood pressure, chest discomfort and dizziness. Patient was recently discharged from [facility] on 01/25/17 after workup and treatment for hypertensive urgency. At that time, she was discharged on 10 mg PO bisoprolol BID, aspirin 81 mg PO daily and lisinopril 40 mg PO daily. Her blood pressure was stabilized after discharge, however yesterday evening, Ms. St noted that her blood pressure was again elevated to 200 mmHg systolic. She took an additional 20 mg PO lisinopril due to this high reading, but her blood pressure remained elevated. She attempted to take a nap and rest, however awoke with sharp, occipital headache, 4/10 substernal and non-radiating chest discomfort, dizziness and dry mouth. These were all of the symptoms patient experienced prior to previous admission and she attributes them to her high blood pressure. Patient also mentions that she is very anxious and feels as if all her muscles are tense. She again reiterates that she has increased stressors in her daily life. Currently, patient denies headache, vision changes, palpitations, shortness of breath, diaphoresis, nausea, vomiting or weakness. She does endorse 2/10 substernal, non -radiating chest discomfort, slight dizziness and anxiety. Social history is significant for about 40 year history of tobacco abuse, currently using 5 cigarettes a day. She denies illicit drug use and occasionally drinks alcohol. She lives in [place] but travels to [place] frequently. She denies herbal supplement use. Past surgical history is significant for appendectomy. Family history is significant for a father with heart disease and a mother/sister with idiopathic HTN. Allergies/Medications Allergies: Coded Allergies: No Known Allergies (01/22/17) Home Med list Amlodipine Besylate 5 MG TABLET 1 TAB PO DAILY HTN Aspirin (Aspirin*) 81 MG TAB.CHEW 81 MG PO DAILY CAD [GLICLADA] 30 MG TAB 1 TAB PO BID DIABETES (Reported) Lisinopril 40 MG TABLET 1 TAB PO DAILY HTN Nicotine (Nicotine Patch) 7 MG/24 HOUR PATCH.TD24 7 MG TOP Q24 Smoking Compliance With Home Meds: GOOD Past History Travel History Traveled to [place] past 21 day No Medical History Neurological: NONE EENT: NONE Cardiovascular: hypertension Respiratory: NONE Gastrointestinal: NONE Hepatic: NONE Renal: NONE Musculoskeletal: NONE Psychiatric: NONE Endocrine: diabetes History of MRSA: No History of VRE: No History of CDIFF: No Surgical History Surgical History: non-contributory Past Family/Social History Psychosocial History Where do you live? Home Services at Home: None Primary Language: Salvadorean Smoking Status: Current Everyday Smoker ETOH Use: occasional use Illicit Drug Use: denies illicit drug use Living Will? no Functional Ability ADLs Independent: dressing, eating, toileting, bathing. Ambulation: independent IADLs Independent: shopping, housework, finances, food prep, telephone, transportation , medication admin. Review of Systems Review of Systems Constitutional: Denies: chills, fever, weakness. EENTM: Denies: blurred vision, visual changes, hearing changes. Cardiovascular: Reports: chest pain. Denies: edema, palpitations, peripheral edema, syncope. Respiratory: Denies: cough, short of breath, wheezing. GI: Denies: abdominal pain, nausea, vomiting. Genitourinary: Denies: dysuria, hematuria. Musculoskeletal: Denies: back pain, joint pain. Skin: Denies: change in skin color, change in hair/nails, lesions. Neurological/Psychological: Reports: anxiety, headache. Denies: confusion, tremors. Hematologic/Endocrine: Denies: bruising, bleeding. Immunologic/Allergic: Denies: splenectomy. All Other Systems: Reviewed and Negative Exam & Diagnostic Data Last 24 Hrs of Vital Signs/I&O Vital Signs Date Time Temp Pulse Resp B/P Pulse O2 O2 Flow FiO2 Ox Delivery Rate 01/28 0350 142/78 01/28 0350 98 Room Air 01/28 0327 156/79 01/28 0324 138/78 01/28 0321 147/80 01/28 0318 66 156/78 01/28 0244 174/90 01/28 0230 98.5 69 18 173/112 95 Room Air Intake & Output 01/28 0800 01/28 0000 01/27 1600 Intake Total Output Total Balance Patient 162 lb Weight Physical Exam General Appearance Alert, Oriented X3, Cooperative, No Acute Distress Skin No Rashes, No Breakdown HEENT Atraumatic, PERRLA, EOMI, Mucous Membr. moist/pink Neck Supple, No JVD, +2 Carotid Pulse wo Bruit Lymphatic Cervical nl Cardiovascular Regular Rate, Normal S1, Normal S2, No Murmurs Lungs Clear to Auscultation, Normal Air Movement Abdomen Normal Bowel Sounds, Soft, No Tenderness, No Hepatospenomegaly Neurological Normal Speech, Normal Tone Extremities No Clubbing, No Cyanosis, No Edema Vascular Pulses Symmetrical Last 24 Hrs of Labs/Austen: Laboratory Tests 01/28/17 0300: Anion Gap 10, Estimated GFR > 60, BUN/Creatinine Ratio 28.0 H, Glucose 159 H, Calcium 9.8, Total Bilirubin 0.4, AST 29, ALT 50, Alkaline Phosphatase 142 H, Troponin I < 0.01, Total Protein 7.0, Albumin 4.3, Globulin 2.7, Albumin/ Globulin Ratio 1.6, CBC w Diff NO MAN DIFF REQ, RBC 4.36, MCV 92.9, MCH 31.4 H, RDW 12.4, MPV 8.8, Gran % 42.3, Lymphocytes % 46.2, Monocytes % 8.7, Eosinophils % 2.2, Basophils % 0.6, Absolute Granulocytes 3.1, Absolute Lymphocytes 3.3, Absolute Monocytes 0.6, Absolute Eosinophils 0.2, Absolute Basophils 0, PUBS MCHC 33.8 Diagnostic Data EKG Results NSR HR 79 bpm, QTC 441. Assessment/Plan Assessment: Ms. St is a pleasant 66 year old Salvadorean speaking female with PMH HTN and type 2 DM who presents to the [facility] ED with chief complaint of high blood pressure, chest discomfort and dizziness. Patient was recently admitted to [facility] on 01/23/17 for hypertensive urgency and again presents with similar complaints, including high blood pressure, headache, slight dizziness and substernal chest tightness. In the ED: Vital signs showed T 98.5, HR 69, RR 18, BP 173/112 and O2 saturation of 95% on room air. Labs showed unremarkable CBC and BEP. Alkaline phos was 142 and troponin <0.01. EKG showed NSR with HR 79 bpm and no significant change from prior. Patient is an observation on the telemetry floor and the following is the management: 1. Hypertensive urgency * BP 173/112 on presentation to the ED, currently at 142/78 after 10 mg IV hydralazine and 0.4 mg SL nitro * Continuous tele monitoring, vital signs Q shift * Continue 10 mg PO norvasc * 40 mg PO daily lisinopril * ASA 81 mg PO daily * Cardiology consult with Dr. Garcia in AM * Trend trops/EKG x 3 to rule out ACS, next sets are at 9 AM and 3 PM * Secondary HTN workup still pending, follow up results * Renal US on 01/24/17 ruled out renal artery stenosis * Of note, no need to repeat echo as it was done on 01/25 and showed normal EF to 55% and impaired LV relaxation 2. Type 2 DM * NSS * Accuchecks TIDAC/HS 3. Tobacco abuse * Tobacco cessation counseling * Nicotine patch 7 mg Top Q24 4. Anxiety * Patient appears anxious and self-reports recent increase in levels of anxiety * Ativan 0.5 mg PO x 1 now * Follow up repeat BP and consider psych follow up FULL CODE DVTP: SC Lovenox Heart Healthy Diet Mild pain pathway As Ranked By This Provider Problem List: 1. Hypertensive urgency 2. Chest pain 3. Type 2 diabetes mellitus Core Measures/Miscellaneous Acute Coronary Syndrome ACS Diagnosis: No Cerebrovascular Accident CVA/TIA Diagnosis: No Congestive Heart Failure CHF Diagnosis: No Venous Thromboembolism VTE Risk Factors: Acute medical illness, Age > 40, Smoking [facility] prophylaxis d/t: No contraindications No VTE Pharm Prophylaxis d/t: No contraindications VTE Diagnosis: No VTE Type: NONE VTE Confirmed by (Test): NONE Severe Sepsis Severe Sepsis Present: No Septic Shock Septic Shock Present: No Miscellaneous Documentation Attending Case Discussed With: SHAY MUJICA MD Primary Care Physician: NUVIA NINA,FATUMA Gamino Patient sees these Specialists PCP in [place] and [place]. Level of Patient Care: Telemetry MINNIE SHEARER MD 01/28/17 0613: Resident Review Statement Resident Statement: examined this patient, discussed with internet marketing strategist, agreed with internet marketing strategist Other Findings: 66 Y/O F with a PMH of HTN, DM and gets all her medical care in [place], presents to the ED with complaints of elevated BP, dizziness and chest pressure. At home, she was maintained on Bispoprol 5 mg QD and Ramipril 2.5 QD She was seen in the ED on 01/23, for the same complaint. At the time, she was asked to take her home Bisoprolol twice a day and check her blood pressure twice a day. Her BP was found to be elevated to the 220's even after doubling her dose of Bisoprolol. Patient came back to the ED the next day, with complaints of dizziness, chest pressure and elevated blood pressure. CT head done in the ED showed no acute pathology. She was discharged from the ED with her increased dose of Bisoprolol and Ramipril BID. She returned to the ED in the evening with elevated BP. She received 1.25 mg of Vasotec x 2 with decrease in her BP. She continued to have some chest pressure and headache. She was then admitted to the telemetry service for HTN urgency. At the time of discharge she was sent home on 01/26 with lisinopril 40mg daily and Amlodipine 5mg for BP management. Patient reports that the evening after she was discharged (ie last evening, she started to have chest tightness that was associated with some occipital headache). She checked her BP and found it to be >200 systolic, so was brought to the ED by her daughter. Of note, at the time of the last admission, bloodwork sent for possible causes of secondary hypertension is still pending. Problem List: 1) Hypertensive Urgency (as the patient has elevated BP along with chest pressure) 2/2 inadequate control on current medications vs secondary HTN 2) Diabetes Mellitus Plan: * Admit patient to Telemetry * Trops and EKG x 3 * Continue Lisinopril 40 mg QD and incease home amlodipine to 10 mg daily. * Await results for secondary HTN causes (renin:aldosterone, urine metanephrines and catecholamines and urine creatinine) that were sent at the time of the previous admission. * DVT PPx: Lovenox SubQ * Pain Pathway: Tylenol PRN * Code Status: Full Code * Patient tends to be anxious and this could be contributing to her elevation in BP. Will administert one dose of PO Ativan and recheck BP after. SHAY MUJICA 01/28/17 0720: Attending Review Statement Attending Statement Attending MD Statement: examined this patient, discuss w/resident/PA/[employer]ARD, agreed w/resident/PA/[employer]ARD, discussed with family, reviewed EMR data (avail), reviewed images, amended to note Attending Assessment/Plan: CC: Chest pain and elevated blood pressure PMH: DM, HTN Patient was recently admitted for elevated blood pressure, and her meds were adjusted and was discharged on . Patient was monitoring blood pressure at home twice a day, today the blood pressure was elevated to 200/100, the same time patient was noticing pressure-like substernal chest pain nonradiating, not associated with palpitation or diaphoresis. So daughter brought her to ER. Vitals: Blood pressure at presentation 173 over 112 trended down to 174/90 then gradually down and up to 135/87 after 10 mg of IV hydralazine, temperature, pulse, respiration, O2 saturation unremarkable. On examination a O 3, anxious, no acute distress, no JVD, neck supple, no lymphadenopathy, mucosa moist, no focal neurological deficit. CVS: S1-S2, RRR. RS: Clear to auscultate bilaterally. Abdomen: Soft, NT, bowel sounds present. No dependent edema, peripheral pulses perfusion normal. Labs: CBC, BMP, troponin, LFT unremarkable. EKG No acute A and P #1 chest pain: Transient, at rest, substernal, nonradiating, no EKG changes, troponin negative, relieved after nitroglycerin. Observe on telemetry, trend troponin, serial EKG, cardiology consult. Continue aspirin Rule out ACS. #2 hypertensive urgency: Blood pressure elevated to 200/ 100 at home, persistently elevated in ER responded to hydralazine, increase amlodipine to 10 mg continue current dose of lisinopril at 40 mg daily. I talked to daughter at length regarding gradually titrating medications for blood pressure control. #3 history of DM: Continue sliding scale insulin #4 history of smoking: Currently on Nicotine patch, counseled regarding cessation
--- NOTE | 2017-01-28 06:17 | NUR ---
PT APPEARS TO BE RESTING COMFORTBALY. RESP UNLABORED. NSR ON THE MOINTOR.
[2017-01-28 06:42] VITALS: BP 140/80
[2017-01-28 09:00] VITALS: BP 138/72
--- NOTE | 2017-01-28 11:06 | PN- Housestaff ---
Subjective Follow-up For: hypertensive urgency type 2 DM Complaints: no complaints Tele-Events Since Last Visit: Sinus bradycardia, heart rate 59, No any Overnight events Subjective: Patient is seen and examined at the bedside. She was not having any active complaints. She denies any shortness of breath, chest pain, headache, nausea, vomiting, abdominal pain, or weakness in her any part of the body. Discussed about the event, at home to her daughter over the phone. According to the daughter . She is talking over the phone with her friend, after that she started having pain in occipital region of her head and after that when they checked her blood pressure was very high over 190 systolic. She took an extra dose of losartan and checked the blood pressure after an hour and which was remained high , so she came to hospital. Review of Systems Constitutional: Denies: no symptoms. Comments: She denies any active complaints Objective Last 24 Hrs of Vital Signs/I&O Vital Signs Date Time Temp Pulse Resp B/P Pulse O2 O2 Flow FiO2 Ox Delivery Rate 01/28 0914 64 138/72 01/28 0914 64 138/72 01/28 0900 138/72 01/28 0642 97.7 64 20 140/80 96 Room Air 01/28 0612 98.4 65 18 135/87 96 01/28 0350 142/78 01/28 0350 98 Room Air 01/28 0327 156/79 01/28 0324 138/78 01/28 0321 147/80 01/28 0318 66 156/78 01/28 0244 174/90 01/28 0230 98.5 69 18 173/112 95 Room Air Intake & Output 01/28 1600 01/28 0800 01/28 0000 Intake Total Output Total Balance Patient 73.482 kg Weight Physical Exam General Appearance: Alert, Oriented X3, Cooperative, No Acute Distress Cardiovascular: Regular Rate, Normal S1, Normal S2 Lungs: Clear to Auscultation, Normal Air Movement Abdomen: Soft, No Tenderness Neurological: Normal Gait, Normal Speech, Strength at 5/5 X4 Ext Extremities: No Clubbing, No Cyanosis, No Edema Current Medications: Current Medications Sig/Yehuda Start time Last Medication Dose Route Stop Time Status Admin Acetaminophen 650 MG Q6P PRN 01/28 0515 AC PO Amlodipine Besylate 10 MG DAILY 01/28 1000 AC 01/28 PO 0914 Aspirin 81 MG DAILY 01/28 1000 AC 01/28 PO 0913 Aspirin 0 .STK-MED ONE 01/28 031 DC PO Aspirin 325 MG ONCE ONE 01/28 0315 DC 01/28 PO 01/28 0316 0327 Enoxaparin Sodium 40 MG DAILY 01/28 1000 AC 01/28 SC 0912 Hydralazine HCl 0 .STK-MED ONE 01/28 0317 DC .ROUTE Hydralazine HCl 10 MG ONCE ONE 01/28 0315 DC 01/28 IV 01/286 0327 Insulin Aspart 0 TIDAC 01/28 0800 AC 01/28 SC 0911 Lisinopril 40 MG DAILY 01/28 1000 AC 01/28 PO 0914 Lorazepam 0 .STK-MED ONE 01/28 0610 DC PO Lorazepam 0.5 MG ONCE ONE 01/28 0545 DC 01/28 PO 01/28 0546 0612 Nicotine 7 MG Q24 01/28 1000 CAN TOP Nicotine 7 MG DAILY 01/28 1000 AC 01/28 TOP 0913 Nitroglycerin 0.4 MG ONCE ONE 01/285 DC 01/28 SL 01/29 316 0327 Last 24 Hrs of Lab/Austen Results Last 24 Hrs of Labs/Mics: Laboratory Tests 01/28/17 0932: Troponin I < 0.01 01/28/17 0300: Anion Gap 10, Estimated GFR > 60, BUN/Creatinine Ratio 28.0 H, Glucose 159 H, Calcium 9.8, Total Bilirubin 0.4, AST 29, ALT 50, Alkaline Phosphatase 142 H, Troponin I < 0.01, Total Protein 7.0, Albumin 4.3, Globulin 2.7, Albumin/ Globulin Ratio 1.6, CBC w Diff NO MAN DIFF REQ, RBC 4.36, MCV 92.9, MCH 31.4 H, RDW 12.4, MPV 8.8, Gran % 42.3, Lymphocytes % 46.2, Monocytes % 8.7, Eosinophils % 2.2, Basophils % 0.6, Absolute Granulocytes 3.1, Absolute Lymphocytes 3.3, Absolute Monocytes 0.6, Absolute Eosinophils 0.2, Absolute Basophils 0, PUBS MCHC 33.8 Assessment/Plan Assessment: Patient is a 66-year-old Hungarian-speaking lady with significant past medical history of hypertension and type 2 diabetes mellitus , recently admitted for hypertensive urgency and discharged on 01/25/2017, again presented to [facility] with chief complaints of high blood pressure, chest discomfort, headache. Plan - Possible discharge tomorrow Hypertensive urgency - * Serial troponins were negative and EKG shows no changes * We will continue tab lisinopril 40 milligrams daily and amlodipine 10 milligrams daily * Vitals every shift * Watch for signs of hypertension including headache and chest pain * We will follow the blood workup for secondary hypertension including metanephrine and normetanephrine, ranin and aldosterone ratio * We will follow cardiology recommendation Type 2 diabetes mellitus * Regular monitoring of blood sugar level 3 times a day/at bedtime * We will supplement insulin according to sliding scale * Tomorrow, we will start her home medication Hyperlipidemia * Lipid profile - LDL -162, cholesterol-241 * Will start her on tablet atorvastatin 40 milligrams OD HS Chronic smoking- * Nicotine patch 7 mgs, OD Diet-heart healthy and low-salt diet DVT prophylaxis -ALP S/heparin CODE STATUS-full code Problem List: 1. Type 2 diabetes mellitus 2. Hypertensive urgency Pain Ratin Pain Location: Occipital region of the head Pain Goal: Remain pain free Pain Plan: [id number] Tomorrow's Labs & Rationales: Not requiring
[2017-01-28] MEDS ORDERED: NORVASC10 M1 PO (12:06)
[2017-01-28] MEDS ORDERED: ATORVASTATIN CA40 M1 PO (14:33)
--- NOTE | 2017-01-28 14:58 | Discharge Summary ---
Visit Information Visit Dates Admission Date: 01/28/17 Discharge Date: 01/29/17 Hospital Course Course Attending Physician: Dr Streeter Primary Care Physician: NUVIA NINA,FATUMA Gamino Hospital Course: Patient is a 66 year old Burundian speaking female with significant past medical history of hypertension , hypertensive urgency and type 2 DM who presents to the [facility] ED with chief complaint of high blood pressure, associated with occipital headache, chest discomfort and dizziness.Patient is mostly Burundian speaking and therefore most of the history is obtained from the patient's daughter. Vital signs at the time of temperature 98.5, pulse 69, respiratory rate 18, blood pressure 173/112, SPO2 95% on room air Hypertensive urgency - She was given hydralazine 10mgs IV, sublingual nitroglycerin in the ED and BP come down from 173/112-142/78 . She was admitted to telemetry for further monitoring. We continued patient on tablet aspirin 81 mgs, tablet, lisinopril 40 mgs, tablet amlodipine 10 mgs, tablet atorvastatin 40mgs. Initial EKG showed NSR and blood workup was within normal limits. We took cardiology opinion and they advised to start patient on clonidine patch. During the hospital course, patient 's blood pressure remained stable. We discharged her with advised to follow-up with Dr. Garcia for further management of hypertension as an outpatient. We also advised her to be compliant with the medication and stop smoking. We be told her that she should discuss with Dr. Garcia about the blood workup, we sent to rule out secondary hypertension. Chronic smoking She quit smoking. We encouraged her to continue it and offered help. Allergies: Coded Allergies: No Known Allergies (01/22/17) Disposition Summary Disposition Principal Diagnosis: Hypertensive urgency under evaluation Additional Diagnosis: Type 2 diabetes mellitus Chronic smoking Discharge Disposition: home or self care Discharge Instructions General Discharge Information Code Status: Full Code Patient's Diet: Heart healthy diet, low-salt diet, low-fat diet Patient's Activity: As tolerated Follow-Up Instructions/Appts: please follow up with your PCP with in a week of discharge. Please follow up with your radar air traffic controller with in a week of discharge and discuss about your blood work up. Please take medication as advised. Please quit smoking. Medications at Discharge Discharge Medications: Stop taking the following medications: Amlodipine Besylate (Amlodipine Besylate) 5 MG TABLET ORAL DAILY Qty = 30 Continue taking these medications: [GLICLADA] 30 MG TAB 1 Tablet ORAL TWICE DAILY Comments: NOT GIVEN IN HOSPITAL Aspirin (Aspirin*) 81 MG TAB.CHEW 81 Milligram ORAL DAILY Qty = 90 Comments: Last Taken: 01/29/17 Time: 9 AM Lisinopril (Lisinopril) 40 MG TABLET 1 Tablet ORAL DAILY Qty = 30 Comments: Last Taken: 01/29/17 Time: 9 AM Nicotine (Nicotine Patch) 7 MG/24 HOUR PATCH.TD24 7 Milligram On the skin EVERY 24 HOURS Qty = 30 Comments: Last Taken: 01/29/17 Time: 9 AM Start taking the following new medications: Amlodipine Besylate (Norvasc) 10 MG TABLET 1 Tablet ORAL DAILY Qty = 30 No Refills Comments: Last Taken: 01/29 Time: 9AM Atorvastatin Calcium (Atorvastatin Calcium) 40 MG TABLET 40 Milligram ORAL 5 PM Qty = 60 No Refills Comments: Last Taken: 01/28 Time: 5PM Clonidine Tts-1 (Catapres-Tts 1) 0.1 MG/24 HOUR PATCH.TDWK 1 Patch On the skin ONCE A WEEK Qty = 30 No Refills Comments: NOT GIVEN IN HOSPITAL Copies To: NUVIA NINA,FATUMA Gamino; DOYLE NINA PhD,JENNIFER Bartholomew Attending MD Review Statement Documenting Attending: SELWYN STREETER MD
[2017-01-28 15:00] VITALS: BP 118/70
[2017-01-28 16:51] VITALS: BP 120/57
--- NOTE | 2017-01-28 18:43 | Cons- Cardiology ---
General Information and HPI Consulting Request Date of Consult: 01/28/17 Requested By: SHAY MUJICA MD History of Present Illness: This patient is a 66 year old female with history of hypertension and diabetes who was recently discharged from [facility] after being treated for uncontrolled hypertension. She was disinitially started on Bisoprolol 10mg daily and Lisinopril 40mg BID but was taken off the Bisoprolol just prior to discharge due to concerns regarding bradycardia. She now returns due to further treatment of this condition which still does not appear to be adequately controlled. Shital reports a discomfort in the back of her neck along with chest discomfort radiating to her arm. Her blood pressure was greater than 200 systolic. The patient states that she is taking her medications faithfully. To review this patient's prior history, she initially presented to [facility] a week ago with complaints of severe, recurrent headaches and she was found to be severely hypertensive at that time. She also reported a mild, nonradiating chest heaviness without associated nausea, vomiting or diaphoresis. At her baseline she is only mildly active but can walk at a normal pace without chest discomfort or shortness of breath. Dizziness was also reported and she has brief bursts of palpitations about once a week. Workup included labs for possible Pheochromocytoma that are not back yet and a renal ultrasound that did not show any evidence of renal artery stenosis. Allergies/Medications Allergies: Coded Allergies: No Known Allergies (01/22/17) Home Med List: Amlodipine Besylate 5 MG TABLET 1 TAB PO DAILY HTN Amlodipine Besylate (Norvasc) 10 MG TABLET 1 TAB PO DAILY HTN Aspirin (Aspirin*) 81 MG TAB.CHEW 81 MG PO DAILY CAD Atorvastatin Calcium 40 MG TABLET 40 MG PO 1700 HIGH CHOLESTEROL [GLICLADA] 30 MG TAB 1 TAB PO BID DIABETES (Reported) Lisinopril 40 MG TABLET 1 TAB PO DAILY HTN Nicotine (Nicotine Patch) 7 MG/24 HOUR PATCH.TD24 7 MG TOP Q24 Smoking Past History Travel History Traveled to [place] past 21 day No Medical History Blood Transfusion Hx: No Neurological: NONE EENT: NONE Cardiovascular: hypertension Respiratory: NONE Gastrointestinal: NONE Hepatic: NONE Renal: NONE Musculoskeletal: NONE Psychiatric: NONE Endocrine: diabetes Surgical History Surgical History: non-contributory Psychosocial History Where Do You Live? Home Services at Home: None Primary Language: Chilean Smoking Status: Current Everyday Smoker ETOH Use: occasional use Illicit Drug Use: denies illicit drug use Living Will? no Functional Ability ADLs Independent: dressing, eating, toileting, bathing. Ambulation: independent IADLs Independent: shopping, housework, finances, food prep, telephone, transportation , medication admin. Exam & Diagnostic Data Vital Signs and I&O Vital Signs Date Time Temp Pulse Resp B/P Pulse O2 O2 Flow FiO2 Ox Delivery Rate 01/28 1651 98.6 56 16 120/57 97 Trach Mask 01/28 1500 118/70 01/28 0914 64 138/72 01/28 0914 64 138/72 01/28 0900 138/72 01/28 0642 97.7 64 20 140/80 96 Room Air 01/28 0612 98.4 65 18 135/87 96 01/28 0350 142/78 01/28 0350 98 Room Air 01/28 0327 156/79 01/28 0324 138/78 01/28 0321 147/80 01/28 0318 66 156/78 01/28 0244 174/90 01/28 0230 98.5 69 18 173/112 95 Room Air Intake & Output 01/28 1600 01/28 0800 01/28 0000 01/27 1600 01/27 0800 01/27 0000 Intake Total 480 Output Total Balance 480 Intake, Oral 480 Patient 162 lb Weight Physical Exam: General: WD/ WN female in NAD; alert and oriented x 3 HEENT: NC/AT, PERRL, EOMI Neck: no JVD, no carotid bruit Heart: RRR w/o murmur Lungs: clear bilaterally Abdomen: soft, NT, +ve bowel sounds Extremities: no edema Diagnostic Data EKG Results sinus rhythm Assessment/Plan Assessment/Plan * There is some concern regarding bradycardia while on beta blockers although this patient was well controlled when on Bisoprolol in addition to the Lisinopril. At this point in time I would add a clonidine TTS1 patch to her drug regimen and monitor for bradycardia. Continue Lisinopril 40mg PO BID and continue Norvasc. Her send out labs are pending and may need to be reviewed during follow up as an outpatient. * This patient had a recent echo that does not need to be repeated. Consult Acknowledgment - Thank you for your consult request.
[2017-01-28 22:00] VITALS: BP 124/72
[2017-01-29] MEDS ORDERED: CATAPRES-TTS 11 EACH TOP (07:43)
--- NOTE | 2017-01-29 07:47 | Patient Discharge Instructions ---
Discharge Instructions General Discharge Information You were seen/treated for: hypertension Special Instructions: please follow up with your PCP with in a week of discharge. Please follow up with your snipper with in a week of discharge and discuss about your blood work up. Please take medication as advised. Please quit smoking. Diet Recommended Diet: Heart Healthy, low salt, low fat diet Activity Full Activity/No Limits: No (as tolerated) Acute Coronary Syndrome Inclusion Criteria At DC or during hospital stay patient has or had the following: ACS DIAGNOSIS No Discharge Core Measures Meds if any: Prescribed or Continued at Discharge Meds if any: NOT Prescribed or Continued at Discharge Congestive Heart Failure Inclusion Criteria At DC or during hospital stay patient has or had the following: CHF DIAGNOSIS No Discharge Core Measures Meds if any: Prescribed or Continued at Discharge Meds if any: NOT Prescribed or Continued at Discharge Cerebrovascular accident Inclusion Criteria At DC or during hospital stay patient has or had the following: CVA/TIA Diagnosis No Discharge Core Measures Meds if any: Prescribed or Continued at Discharge Meds if any: NOT Prescribed or Continued at Discharge Venous thromboembolism Inclusion Criteria VTE Diagnosis No VTE Type NONE VTE Confirmed by (Test) NONE Discharge Core Measures - Per Current guidelines, there needs to be overlap - treatment for the first 5 days of Warfarin therapy. - If discharged on Warfarin prior to 5 days of - overlap therapy, the patient will need to be - assessed for post discharge needs including - *Post discharge parental anticoagulation - *Warfarin and/or parental anticoagulation education - *Follow up date to check INR post discharge At least 5 days overlap therapy as Inpatient No Meds if any: Prescribed or Continued at Discharge Warfarin No Note: Overlap Therapy is Warfarin and Anticoagulant Meds if any: NOT Prescribed or Continued at Discharge
--- NOTE | 2017-01-29 07:47 | PN- Housestaff ---
Subjective Follow-up For: Hypertensive urgency Complaints: no complaints Tele-Events Since Last Visit: JOVON Subjective: Patient is seen and examined at the bedside. She was not having any active complain.She denies any headache, nausea, vomiting, chest pain, shortness of breath. Review of Systems Constitutional: Denies: no symptoms. Comments: Patient denies any active complaints Objective Last 24 Hrs of Vital Signs/I&O Vital Signs Date Time Temp Pulse Resp B/P Pulse O2 O2 Flow FiO2 Ox Delivery Rate 01/29 0907 120/77 01/29 0907 120/77 01/29 0832 97.8 70 17 120/77 96 Room Air 01/28 2200 97.2 68 18 124/72 96 Room Air 01/28 1651 98.6 56 16 120/57 97 Trach Mask 01/28 1500 118/70 01/28 0914 64 138/72 01/28 0914 64 13872 Intake & Output 01/29 1600 01/29 0800 01/29 0000 Intake Total 0 400 Output Total Balance 0 400 Intake, IV 0 0 Intake, Oral 0 400 Number 0 0 Bowel Movements Physical Exam General Appearance: Alert, Oriented X3, Cooperative, No Acute Distress Cardiovascular: Normal S1, Normal S2 Lungs: Clear to Auscultation, Normal Air Movement Neurological: Normal Speech Extremities: No Clubbing, No Cyanosis, No Edema Current Medications: Current Medications Sig/Yehuda Start time Last Medication Dose Route Stop Time Status Admin Acetaminophen 650 MG Q6P PRN 01/28 0515 AC PO Amlodipine Besylate 10 MG DAILY 01/28 1000 AC 01/29 PO 0907 Aspirin 81 MG DAILY 01/28 1000 AC 01/29 PO 0907 Atorvastatin Calcium 40 MG 1700 01/28 1700 AC 01/28 PO 1758 Clonidine 1 PAT Q168 02/04 1000 AC TOP Enoxaparin Sodium 40 MG DAILY 01/28 1000 AC 01/29 SC 0907 Insulin Aspart 0 TIDAC 01/28 0800 AC 01/28 SC 1758 Lisinopril 40 MG DAILY 01/28 1000 AC 01/29 PO 0907 Nicotine 7 MG DAILY 01/28 1000 AC 01/29 TOP 0910 Last 24 Hrs of Lab/[place] Results Last 24 Hrs of Labs/Mics: Laboratory Tests 01/28/17 1456: Troponin I < 0.01 01/28/17 0932: Troponin I < 0.01 Assessment/Plan Assessment: Patient is a 66-year-old Turkmen-speaking lady with significant past medical history of hypertension and type 2 diabetes mellitus , recently admitted for hypertensive urgency and discharged on 01/25/2017, again presented to [place] ED with chief complaints of high blood pressure, chest discomfort, headache. Plan - Possible discharge today Hypertensive urgency - * Serial troponins were negative and EKG shows no changes * We will continue tab lisinopril 40 milligrams daily and amlodipine 10 milligrams daily and started her on clonidine patch Q168 * Vitals every shift * Watch for signs of hypertension including headache and chest pain * We will follow the blood workup for secondary hypertension including metanephrine and normetanephrine, ranin and aldosterone ratio * We will follow cardiology recommendation Type 2 diabetes mellitus * Regular monitoring of blood sugar level 3 times a day/at bedtime * We will supplement insulin according to sliding scale * Tomorrow, we will start her home medication Hyperlipidemia * Lipid profile - LDL -162, cholesterol-241 * Continue on tablet atorvastatin 40 milligrams OD HS Chronic smoking- * Nicotine patch 7 mgs, OD Diet-heart healthy and low-salt diet DVT prophylaxis -ALP S/heparin CODE STATUS-full code Problem List: 1. Hypertensive urgency 2. Chest pain 3. Type 2 diabetes mellitus 4. Hypertension Pain Ratin Pain Location: headache Pain Goal: Remain pain free Pain Plan: mild Tomorrow's Labs & Rationales: none, as patient is discharged today DVT/Prophylaxis: mechanical, pharmacological
[2017-01-29 08:32] VITALS: BP 120/77
[2017-01-29 09:07] VITALS: BP 120/77
== END 2017-01-29 14:15 ==
LOC: ENRESERVTM → ENRESERVDT → ERH 02:23 → ENPENDDIS 04:19 → 1NO 04:19 → ERHI 04:19 → 1NO 04:19
PROVIDERS: Pediatrics; ADMIT Internal Medicine
DX: I10 Essential (primary) hypertension (principal); E11.9 Type 2 diabetes mellitus without complications; F17.200 Nicotine dependence, unspecified, uncomplicated; F41.9 Anxiety disorder, unspecified
CPT/HCPCS: 93005; 93010; 96372; 96374; 99291; G0378; J0360; J1650; J3490